=== PATIENT | male | born 1940 | race Caucasian/White ===

== ENCOUNTER → 2016-09-01 | Outpatient (CLI) | payer OTHER ==
[2016-09-01 10:22] LABS: ESTIMATED AVERAGE GLUCOSE 174 mg/dl; HA1C FLAG Normal (Normal)
[2016-09-01 10:42] LABS: ALT/SGPT 24 U/L (12-78); BLOOD UREA NITROGEN 14 mg/dl (7-18); BUN/CREATININE RATIO 16.1 (10-20); CALCIUM 9.9 mg/dl (8.5-10.1); CARBON DIOXIDE 27 mmol/L (21-32); CHLORIDE 101 mmol/L (98-107); CHOLESTEROL 139 mg/dl (0-200); CREATININE 0.88 mg/dl (0.60-1.40); GLUCOSE 182 mg/dl (70-99); POTASSIUM 4.8 mmol/L (3.5-5.1); SODIUM 138 mmol/L (136-145); URIC ACID 5.4 mg/dl (2.6-7.2)
[2016-09-01 10:45] LABS: ALB/GLOB RATIO 1.4 (0.9-2); ALKALINE PHOSPHATASE 95 U/L (45-117); AST/SGOT 32 U/L (15-37); HDL CHOLESTEROL 28 mg/dl; LDL CHOLESTEROL CALCULATED 53 mg/dl; TRIGLYCERIDES 288 mg/dl (0-150); VERY LOW DENSITY LIPOPROT CALC 58 mg/dl
== END | disposition home or self-care (01) ==
LOC: C.LAB1850 08:56
PROVIDERS: ATTEND Internal Medicine
DX: E78.5 Hyperlipidemia, unspecified (principal); E11.9 Type 2 diabetes mellitus without complications; M10.9 Gout, unspecified; I10 Essential (primary) hypertension

== ENCOUNTER → 2017-02-02 | Outpatient (CLI) | payer OTHER ==
[2017-02-02 13:30] LABS: ESTIMATED AVERAGE GLUCOSE 189 mg/dl; HA1C FLAG Normal (Normal)
[2017-02-02 13:45] LABS: ALT/SGPT 26 U/L (12-78); BLOOD UREA NITROGEN 12 mg/dl (7-18); BUN/CREATININE RATIO 14.8 (10-20); CALCIUM 9.5 mg/dl (8.5-10.1); CARBON DIOXIDE 26 mmol/L (21-32); CHLORIDE 106 mmol/L (98-107); CHOLESTEROL 103 mg/dl (0-200); CREATININE 0.83 mg/dl (0.60-1.40); GLUCOSE 185 mg/dl (70-99); POTASSIUM 4.4 mmol/L (3.5-5.1); SODIUM 137 mmol/L (136-145); TRIGLYCERIDES 263 mg/dl (0-150); URIC ACID 5.5 mg/dl (2.6-7.2); VERY LOW DENSITY LIPOPROT CALC 53 mg/dl
[2017-02-02 13:49] LABS: ALB/GLOB RATIO 1.2 (0.9-2); ALKALINE PHOSPHATASE 80 U/L (45-117); AST/SGOT 42 U/L (15-37); CHOLESTEROL/HDL RATIO 3.8; HDL CHOLESTEROL 27 mg/dl; LDL CHOLESTEROL CALCULATED 23 mg/dl
== END | disposition home or self-care (01) ==
LOC: C.LABBC 09:32
PROVIDERS: ATTEND Internal Medicine
DX: E78.5 Hyperlipidemia, unspecified (principal); E11.9 Type 2 diabetes mellitus without complications

== ENCOUNTER → 2017-05-28 | Outpatient (CLI) | payer OTHER ==
[2017-05-28 12:43] LABS: ALT/SGPT 21 U/L (12-78); BLOOD UREA NITROGEN 14 mg/dl (7-18); BUN/CREATININE RATIO 16.3 (10-20); CALCIUM 9.5 mg/dl (8.5-10.1); CARBON DIOXIDE 24 mmol/L (21-32); CHLORIDE 103 mmol/L (98-107); CREATININE 0.89 mg/dl (0.60-1.40); GLUCOSE 147 mg/dl (70-99); POTASSIUM 4.2 mmol/L (3.5-5.1); SODIUM 135 mmol/L (136-145)
[2017-05-28 12:46] LABS: ALB/GLOB RATIO 1.5 (0.9-2); ALKALINE PHOSPHATASE 66 U/L (45-117); AST/SGOT 28 U/L (15-37)
[2017-05-28 12:58] LABS: ESTIMATED AVERAGE GLUCOSE 169 mg/dl; HA1C FLAG Normal (Normal)
== END | disposition home or self-care (01) ==
LOC: C.LAB1850 09:52
PROVIDERS: ATTEND Internal Medicine
DX: E11.9 Type 2 diabetes mellitus without complications (principal); E78.5 Hyperlipidemia, unspecified; I10 Essential (primary) hypertension

== ENCOUNTER → 2017-09-26 | Outpatient (CLI) | payer OTHER ==
[2017-09-26 14:18] LABS: ALBUMIN 3.9 gm/dl (3.4-5.0); ALT/SGPT 25 U/L (12-78); BLOOD UREA NITROGEN 11 mg/dl (7-18); CALCIUM 9.4 mg/dl (8.5-10.1); CARBON DIOXIDE 28 mmol/L (21-32); CREATININE 0.97 mg/dl (0.60-1.40); GLUCOSE 184 mg/dl (70-99); POTASSIUM 4.1 mmol/L (3.5-5.1); SODIUM 137 mmol/L (136-145)
[2017-09-26 14:21] LABS: ALKALINE PHOSPHATASE 82 U/L (45-117); AST/SGOT 42 U/L (15-37); TOTAL PROTEIN 7.4 gm/dl (6.4-8.2)
[2017-09-27 06:27] LABS: HEMOGLOBIN A1C 7.4 % (4.5-5.6)
== END | disposition home or self-care (01) ==
LOC: C.LABBC 10:23
PROVIDERS: ATTEND Internal Medicine
DX: E11.9 Type 2 diabetes mellitus without complications (principal)

== ENCOUNTER → 2018-02-01 | Outpatient (CLI) | payer OTHER ==
[2018-02-01 17:02] LABS: HEMOGLOBIN A1C 7.1 % (4.5-5.6)
[2018-02-01 17:09] LABS: ALBUMIN 4.1 gm/dl (3.4-5.0); ALKALINE PHOSPHATASE 84 U/L (45-117); ALT/SGPT 25 U/L (12-78); AST/SGOT 36 U/L (15-37); BLOOD UREA NITROGEN 15 mg/dl (7-18); CALCIUM 9.2 mg/dl (8.5-10.1); CARBON DIOXIDE 23 mmol/L (21-32); CHOLESTEROL 98 mg/dl (0-200); CREATININE 0.97 mg/dl (0.60-1.40); GLUCOSE 119 mg/dl (70-99); LDL CHOLESTEROL CALCULATED 38 mg/dl; POTASSIUM 4.4 mmol/L (3.5-5.1); SODIUM 136 mmol/L (136-145); TOTAL PROTEIN 7.3 gm/dl (6.4-8.2)
== END | disposition home or self-care (01) ==
LOC: C.LABPBG 11:18
PROVIDERS: ATTEND Internal Medicine
DX: E11.9 Type 2 diabetes mellitus without complications (principal); I10 Essential (primary) hypertension; E78.5 Hyperlipidemia, unspecified; Z12.5 Encounter for screening for malignant neoplasm of prostate

== ENCOUNTER 2024-03-26 19:54 | Inpatient (IN) ==
--- NOTE | 2024-03-26 20:33 | Emergency Department Note ---
Impression & Plan Anemia, Chronic lymphocytic leukemia, NAVAS (dyspnea on exertion), Swelling ED Provider Note Provider: Jag Fierro MD DATE OF SERVICE: 03/26/2024 CHIEF COMPLAINT: Referred, swelling HISTORY OF PRESENT ILLNESS: Patient is a 83-year-old gentleman history of CLL follows with oncology here as well as diabetes presenting here today referred by his outpatient primary doctor. Over the last week or so has increased on the lower legs. Bilateral and fairly significant. Difficulty laying flat admitted for cough and dyspnea on exertion. No chest pain or abdominal pain reported. No syncope or falls. Saw his outpatient doctor and started on Lasix which she just took this evening. Had outpatient blood work and x-ray done at [facility]. Evidently results showed evidence of fluid overload and significant anemia with a white blood cell count also found to be over 200,000 was referred here for further evaluation. Also reports that he may have been in atrial fibrillation. Did have some imaging completed here last week for evaluation with oncology to start oral chemotherapy at the end of this month as he is not currently on anything. Not on blood thinners. Denies any active bleeding or black or bloody stools. Denies fever or significant congestion at this point. Has had COVID in the past. PAST MEDICAL HISTORY: As noted above MEDICATIONS: Reviewed home medications SOCIAL HISTORY: PHYSICAL EXAM: GENERAL: alert and oriented in no acute distress on stretcher Head: normocephalic and atraumatic EYES: No injection, discharge or icterus. NECK: Trachea midline. ENT: Mucous membranes pink and moist. LUNGS: Airway patent. No retractions. Breath sounds diminished in the bilateral bases HEART: Regular rate and rhythm. No chest wall tenderness ABDOMEN: Soft and non-tender, without guarding or rebound. SKIN: Acyanotic, warm, dry, without rashes EXTREMITIES: Without tenderness with 2-3+ edema the bilateral lower legs. NEUROLOGICAL: No focal deficits. No aphasia. No facial droop or slurred speech. Ambulatory. EK bpm sinus rhythm first-degree AV block with occasional PVC. No acute ST segment elevation with a QTc of 452. CONTINUOUS CARDIAC MONITORING: was ordered and showed a heart rate of 90s bpm in first-degree AV block frequent PVCs 2 view chest x-ray PA and lateral from [facility] obtained and in the EMR per my interpretation with evidence of particularly some lower lung effusion and scattered slight pulmonary edema but no pneumothorax or pneumonia appreciable. No obvious free air. Patient's laboratory studies and imaging reviewed. Differential includes Infection, dehydration, metabolic abnormality, hypo/hyperglycemia, electrolyte disturbance, anemia, hypoxia, cardiac sources, intracerebral event, toxicologic, neurologic, as well as other pathologies. IMPRESSION/MEDICAL DECISION MAKING: No bleeding or blood loss reported. Outpatient blood work with his history of CLL is concerning for possible anemia related to low production. Type and screen sent. Repeat blood work sent. Will obtain x-ray and seems likely consistent with some fluid overload probably from the level blood counts. Report of possible A-fib but does not appear to be A-fib upon arrival here. Will not start anticoagulation at this point but continue to monitor until further information of where this was noted can be found. No evidence of any significant confusion does not appear meningitic. No focal neurological deficit and doubt stroke. Did send iron ferritin panel although again seems likely related to his oncological process. Patient likely not hypoxic and I doubt this represents PE or pneumonia. Blood work here with mild hyperkalemia 5.4 but normal creatinine of 1.09. Iron level not low. BNP and troponin elevated 109 of 500 without elevated procalcitonin negative respiratory viral panel. Hemoglobin 5.1 with a white blood cell count of 282,000. Antibody screen is returning somewhat positive corneal blood bank as they were through final analysis. Reach out discussed with oncology. Patient consented for blood transfusion. 3 units packed red blood cells ordered. Discussed with oncology Dr. Hyatt who recommended l eukoreduced and irradiated blood products. Will need at least 3 units and blood bank will need to find these. Patient is hemodynamically stable. Given his age, the need for these to be infused gradually and the elevated troponin with his symptoms do believe he requires further observation until this could be completed and discussed with the hospitalist team. Patient agreeable as is the hospitalist. DIAGNOSIS: Dyspnea on exertion, leg swelling, CLL, anemia DISPOSITION: Hospitalist will evaluate Patient was agreeable with this plan. Critical Care I have personally spent 48 minutes of critical care time in the direct management of this patient. This includes bedside care, interpretation of diagnostic studies, and testing, discussion with consultants, patient, and family members, and other required patient management activities. These 48 minutes is in excess of all separately billable procedures. Past Med/Surg History Problem List (Updated 03/26/24 @ 22:25 by Jag Fierro M.D.) Swelling (Acute) NAVAS (dyspnea on exertion) (Acute) Chronic lymphocytic leukemia (Acute) Anemia (Acute) Social History Smoking Status: Never smoker Hx Alcohol Use: No Hx Substance Use: No Preferred Language: Jamaican Communication Ability: Effective Cold Rolling Supervisor Required: No Beliefs That Will Affect Care: None Current Living Situation: Spouse Feels Safe at Home: Yes Assistive Devices: Cane Allergies Allergies Allergy/AdvReac Type Severity Reaction Status Date / Time No Known Allergies Allergy Unverified 02/16/23 09:48 Home Meds Home Medications Medication Instructions Recorded Confirmed albuterol sulfate 90 mcg/actuation 2 puff inhalation Q4 PRN WHEEZING 03/26/24 03/26/24 aerosol inhaler OR COUGH allopurinol 100 mg tablet 100 mg PO QPM 03/26/24 03/26/24 aspirin 81 mg tablet,delayed 81 mg PO DAILY 03/26/24 03/26/24 release doxazosin 2 mg tablet 2 mg PO QPM 03/26/24 03/26/24 empagliflozin 25 mg tablet 25 mg PO QAM 03/26/24 03/26/24 (Jardiance) furosemide 40 mg tablet 40 mg PO DAILY 03/26/24 03/26/24 levothyroxine 50 mcg tablet 50 mcg PO DAILYBB 03/26/24 03/26/24 metoprolol succinate 50 mg 50 mg PO HS 03/26/24 03/26/24 tablet,extended release 24 hr rosuvastatin 10 mg tablet 10 mg PO QPM 03/26/24 03/26/24 sitagliptin phosphate 50 1 tab PO BID 03/26/24 03/26/24 mg-metformin 1,000 mg tablet (Janumet) Results & Data (ED) Vital Signs Vital Signs - 24 hr 03/26/24 19:58 03/26/24 20:16 03/26/24 20:26 Temperature 36.9 C Temperature Source Oral Pulse Rate 102 H 93 H Pulse Rate [Apical] 90 Respiratory Rate 20 20 Respiratory Effort / Characteristics Non-Labored Spontaneous Respiratory Depth Normal Respiratory Pattern Blood Pressure 106/56 L Blood Pressure [Right Arm] 134/74 Blood Pressure Mean 72 Blood Pressure Mean [Right Arm] 94 Blood Pressure Position [Right Arm] Semi-fowlers Pulse Oximetry 93 92 Oxygen Delivery Method Room Air Room Air Sepsis Recent Fever Within 48 Hours No Sepsis New/Unexplained Change in Mental Status No Sepsis Action Taken by Nursing No Action Required 03/26/24 20:26 03/26/24 21:25 03/26/24 22:04 Temperature 37.0 C Temperature Source Oral Pulse Rate 92 H Pulse Rate [Apical] 90 91 H Respiratory Rate 24 23 24 Respiratory Effort / Characteristics Non-Labored Spontaneous Respiratory Depth Normal Respiratory Pattern Regular Blood Pressure Blood Pressure [Right Arm] 111/72 105/60 Blood Pressure Mean Blood Pressure Mean [Right Arm] 85 75 Blood Pressure Position [Right Arm] Semi-fowlers Semi-fowlers Pulse Oximetry 92 92 92 Oxygen Delivery Method Room Air Room Air Room Air Sepsis Recent Fever Within 48 Hours Sepsis New/Unexplained Change in Mental Status Sepsis Action Taken by Nursing Laboratory Data 03/26/24 20:24 03/26/24 20:24 Lab Results 03/26/24 03/26/24 03/26/24 Range/Units 20:24 20:31 20:39 WBC 282.26 H* (4.8-10.8) K/ul RBC 1.64 L (4.70-6.10) M/uL Hgb 5.1 L* (14.0-18.0) g/dl Hct 19.0 L* (42.0-52.0) % MCV 115.9 H (80.0-100.0) fL MCH 31.1 (25.0-34.0) pg MCHC 26.8 L (32.0-36.0) g/dL Plt Count 164 (130-400) K/uL MPV 10.7 (9.4-12.4) fL Immature Gran % (Auto) 0.4 % Neut % (Auto) 2.8 % Lymph % (Auto) 90.3 % Casey % (Auto) 6.3 % Eos % (Auto) 0.1 % Baso % (Auto) 0.1 % Neut # (Auto) 7.78 H (1.40-6.50) K/uL Lymph # (Auto) 254.87 H (1.20-3.40) K/uL Casey # (Auto) 17.80 H (0.11-0.59) K/uL Eos # (Auto) 0.36 (0.00-0.50) K/uL Baso # (Auto) 0.29 H (0.00-0.20) K/uL Immature Gran # (Auto) 1.16 H (0.01-0.20) K/uL Absolute Nucleated RBC 0.05 (0.00-0.12) K/uL Smudge Cells Present Polychromasia 2+ Hypochromasia Present Macrocytosis Present PT 12.4 H (9.0-12.0) Seconds INR 1.2 H (0.9-1.1) Sodium 140 (136-145) mmol/L Potassium 5.4 H (3.5-5.1) mmol/L Chloride 106 (98-107) mmol/L Carbon Dioxide 26 (21-32) mmol/L Anion Gap 8 (3-11) BUN 28 H (6-23) mg/dl Creatinine 1.09 (0.6-1.4) mg/dl Est Cr Clr Drug Dosing 58.3 ml/min eGFR 68.18 BUN/Creatinine Ratio 25.7 H (10-20) Glucose 217 H (70-99(Fasting)) mg/dl Calcium 9.3 (8.6-10.3) mg/dl Magnesium 1.9 (1.7-2.4) mg/dl Iron 178 H (35-175) mcg/dl TIBC 329 (250-450) mcg/dl Unsaturated IBC 151 L (155-355) mcg/dl Transferrin % Sat 54 H (20-50) % Ferritin 256.3 (8-388) ng/ml Total Bilirubin 1.2 H (0.2-1.0) mg/dl AST 30 (13-39) U/L ALT 9 (7-52) U/L Alkaline Phosphatase 121 H (34-104) U/L Troponin I High Sens 109.0 H* (0-20) pg/ml B-Natriuretic Peptide 500 H (0-100) pg/ml Total Protein 6.4 (6.0-8.3) gm/dl Albumin 4.5 (3.4-5.0) gm/dl Globulin 1.9 L (2.5-4.0) gm/dl Albumin/Globulin Ratio 2.4 H (0.9-2) Procalcitonin < 0.02 (0-0.5) ng/ml TSH 11.667 H (0.300-4.500) uIu/ml Free T4 0.79 (0.61-1.60) ng/dl Urine Color Urine Appearance (Clear) Urine pH (4.5-7.5) Ur Specific Sherman (1.000-1.030) Urine Protein (Negative) Urine Glucose (UA) (Negative) Urine Ketones (Negative) Urine Blood (Negative) Urine Nitrite (Negative) Urine Bilirubin (Negative) Urine Urobilinogen (Negative) Ur Leukocyte Esterase (Negative) Adenovirus (PCR) Not Detected (NotDetected) B. pertussis DNA (PCR) Not Detected (NotDetected) B.parapertussis DNA PCR Not Detected (NotDetected) C. pneumoniae DNA (PCR) Not Detected (NotDetected) Coronavirus OC43 (PCR) Not Detected (NotDetected) Coronavirus HKU1 (PCR) Not Detected (NotDetected) Coronavirus 229E (PCR) Not Detected (NotDetected) SARS-CoV-2 (PCR) Not Detected (NotDetected) Coronavirus NL63 (PCR) Not Detected (NotDetected) Human Metapneumovir PCR Not Detected (NotDetected) Influenza Type A (PCR) Not Detected (NotDetected) Influenza Type B (PCR) Not Detected (NotDetected) M. pneumoniae (PCR) Not Detected (NotDetected) Parainfluenza 1 (PCR) Not Detected (NotDetected) Parainfluenza 2 (PCR) Not Detected (NotDetected) Parainfluenza 3 (PCR) Not Detected (NotDetected) Parainfluenza 4 (PCR) Not Detected (NotDetected) RSV (PCR) Not Detected (NotDetected) Entero/Rhino (PCR) Not Detected (NotDetected) Blood Type O Positive Antibody Screen NEGATIVE Crossmatch See Detail See Detail 03/26/24 Range/Units 21:30 WBC (4.8-10.8) K/ul RBC (4.70-6.10) M/uL Hgb (14.0-18.0) g/dl Hct (42.0-52.0) % MCV (80.0-100.0) fL MCH (25.0-34.0) pg MCHC (32.0-36.0) g/dL Plt Count (130-400) K/uL MPV (9.4-12.4) fL Immature Gran % (Auto) % Neut % (Auto) % Lymph % (Auto) % Casey % (Auto) % Eos % (Auto) % Baso % (Auto) % Neut # (Auto) (1.40-6.50) K/uL Lymph # (Auto) (1.20-3.40) K/uL Casey # (Auto) (0.11-0.59) K/uL Eos # (Auto) (0.00-0.50) K/uL Baso # (Auto) (0.00-0.20) K/uL Immature Gran # (Auto) (0.01-0.20) K/uL Absolute Nucleated RBC (0.00-0.12) K/uL Smudge Cells Polychromasia Hypochromasia Macrocytosis PT (9.0-12.0) Seconds INR (0.9-1.1) Sodium (136-145) mmol/L Potassium (3.5-5.1) mmol/L Chloride (98-107) mmol/L Carbon Dioxide (21-32) mmol/L Anion Gap (3-11) BUN (6-23) mg/dl Creatinine (0.6-1.4) mg/dl Est Cr Clr Drug Dosing ml/min eGFR BUN/Creatinine Ratio (10-20) Glucose (70-99(Fasting)) mg/dl Calcium (8.6-10.3) mg/dl Magnesium (1.7-2.4) mg/dl Iron (35-175) mcg/dl TIBC (250-450) mcg/dl Unsaturated IBC (155-355) mcg/dl Transferrin % Sat (20-50) % Ferritin (8-388) ng/ml Total Bilirubin (0.2-1.0) mg/dl AST (13-39) U/L ALT (7-52) U/L Alkaline Phosphatase (34-104) U/L Troponin I High Sens (0-20) pg/ml B-Natriuretic Peptide (0-100) pg/ml Total Protein (6.0-8.3) gm/dl Albumin (3.4-5.0) gm/dl Globulin (2.5-4.0) gm/dl Albumin/Globulin Ratio (0.9-2) Procalcitonin (0-0.5) ng/ml TSH (0.300-4.500) uIu/ml Free T4 (0.61-1.60) ng/dl Urine Color Yellow Urine Appearance Clear (Clear) Urine pH 5.0 (4.5-7.5) Ur Specific Sherman 1.013 (1.000-1.030) Urine Protein Negative (Negative) Urine Glucose (UA) 3+ H (Negative) Urine Ketones Negative (Negative) Urine Blood Negative (Negative) Urine Nitrite Negative (Negative) Urine Bilirubin Negative (Negative) Urine Urobilinogen Negative (Negative) Ur Leukocyte Esterase Negative (Negative) Adenovirus (PCR) (NotDetected) B. pertussis DNA (PCR) (NotDetected) B.parapertussis DNA PCR (NotDetected) C. pneumoniae DNA (PCR) (NotDetected) Coronavirus OC43 (PCR) (NotDetected) Coronavirus HKU1 (PCR) (NotDetected) Coronavirus 229E (PCR) (NotDetected) SARS-CoV-2 (PCR) (NotDetected) Coronavirus NL63 (PCR) (NotDetected) Human Metapneumovir PCR (NotDetected) Influenza Type A (PCR) (NotDetected) Influenza Type B (PCR) (NotDetected) M. pneumoniae (PCR) (NotDetected) Parainfluenza 1 (PCR) (NotDetected) Parainfluenza 2 (PCR) (NotDetected) Parainfluenza 3 (PCR) (NotDetected) Parainfluenza 4 (PCR) (NotDetected) RSV (PCR) (NotDetected) Entero/Rhino (PCR) (NotDetected) Blood Type Antibody Screen Crossmatch Discharge Plan Visit Data Chief Complaint: Abnormal Labs/Diagnostic Testing Stated Complaint: ABN EKG, IN A-FIB, CLL, DOUBLE WHITE BLOOD COUNT ED Provider: Jag Fierro Discharge Problem: Anemia, Chronic lymphocytic leukemia, NAVAS (dyspnea on exertion), Swelling Patient Disposition: Being Evaluated by Hospitalist Forms Stand Alone Forms: [facility] Prescriptions Prescriptions: No Action furosemide 40 mg tablet 40 mg PO DAILY albuterol sulfate 90 mcg/actuation HFA aerosol inhaler 2 puff INHALATION Q4 PRN (Reason: WHEEZING OR COUGH) aspirin [Aspirin Low-Strength] 81 mg Tablet,Delayed Release (Dr/Ec) 81 mg PO DAILY allopurinol 100 mg tablet 100 mg PO QPM levothyroxine 50 mcg tablet 50 mcg PO DAILYBB metoprolol succinate 50 mg tablet extended release 24 hr 50 mg PO HS Janumet 50-1,000 mg tablet 1 tab PO BID doxazosin 2 mg tablet 2 mg PO QPM rosuvastatin 10 mg tablet 10 mg PO QPM Jardiance 25 mg tablet 25 mg PO QAM Referrals Referrals: Lang Colon [Primary Care Provider] -
[2024-03-26 20:59] LABS: Albumin Globulin Ratio 2.4 (0.9-2); Albumin Level 4.5 gm/dl (3.4-5.0); BUN Creatinine Ratio 25.7 (10-20); Bilirubin,Total 1.2 mg/dl (0.2-1.0); Calcium 9.3 mg/dl (8.6-10.3); Creatinine Clr Calc Pharmacy 58.3 ml/min; Globulin 1.9 gm/dl (2.5-4.0); Magnesium 1.9 mg/dl (1.7-2.4); Potassium 5.4 mmol/L (3.5-5.1); Total Protein 6.4 gm/dl (6.0-8.3)
[2024-03-26 21:10] LABS: INR 1.2 (0.9-1.1); Prothrombin Time 12.4 Seconds (9.0-12.0)
[2024-03-26 21:15] LABS: Thyroid Stimulating Hormone 11.667 uIu/ml (0.300-4.500)
[2024-03-26 21:20] LABS: Ferritin 256.3 ng/ml (8-388)
[2024-03-26 21:41] LABS: Adenovirus PCR Not Detected (NotDetected); Bordetella parapertussis PCR Not Detected (NotDetected); Bordetella pertussis PCR Not Detected (NotDetected); Chlamydia pneumoniae PCR Not Detected (NotDetected); Coronavirus 229E PCR Not Detected (NotDetected); Coronavirus CoV-2 (COVID19)PCR Not Detected (NotDetected); Coronavirus HKU1 PCR Not Detected (NotDetected); Coronavirus NL63 PCR Not Detected (NotDetected); Coronavirus OC43PCR Not Detected (NotDetected); Human Metapneumovirus PCR Not Detected (NotDetected); Influenza A PCR Not Detected (NotDetected); Influenza B PCR Not Detected (NotDetected); Mycoplasma pneumoniae PCR Not Detected (NotDetected); Parainfluenza Virus 1 PCR Not Detected (NotDetected); Parainfluenza Virus 2 PCR Not Detected (NotDetected); Parainfluenza Virus 3 PCR Not Detected (NotDetected); Parainfluenza Virus 4 PCR Not Detected (NotDetected); Respiratory Syncytial VirusPCR Not Detected (NotDetected); Rhinovirus/Enterovirus PCR Not Detected (NotDetected)
[2024-03-26 21:47] LABS: Hemoglobin 5.1 g/dl (14.0-18.0); Mean Corpuscular Hemoglobin 31.1 pg (25.0-34.0); Mean Corpuscular Hgb Conc 26.8 g/dL (32.0-36.0); Mean Corpuscular Volume 115.9 fL (80.0-100.0); Mean Platelet Volume 10.7 fL (9.4-12.4); Nucleated RBC # (auto) 0.05 K/uL (0.00-0.12); Platelet Count 164 K/uL (130-400); Red Blood Count 1.64 M/uL (4.70-6.10); White Blood Count 282.26 K/ul (4.8-10.8)
[2024-03-26 21:52] LABS: T4 Free Thyroxine 0.79 ng/dl (0.61-1.60)
[2024-03-26] MEDS ORDERED: SODIUM CHLORIDE 0.9% 250 ML IV PRN (22:13)
[2024-03-26 22:23] LABS: Appearance Urine Clear (Clear); Bilirubin Urine Negative (Negative); Blood Urine Negative (Negative); Color Urine Yellow; Glucose Urine UA 3+ (Negative); Ketones Urine Negative (Negative); Leukocyte Esterase Urine Negative (Negative); Nitrite Urine Negative (Negative); Protein Urine Negative (Negative); Specific Gravity Urine 1.013 (1.000-1.030); Urobilinogen Urine Negative (Negative)
[2024-03-26 22:54] LABS: Basophils # (auto) 0.29 K/uL (0.00-0.20); Basophils % (auto) 0.1 %; Eosinophils # (auto) 0.36 K/uL (0.00-0.50); Eosinophils % (auto) 0.1 %; Hypochromasia Present; Immature Granulocytes # (auto) 1.16 K/uL (0.01-0.20); Immature Granulocytes % (auto) 0.4 %; Lymphocytes # (auto) 254.87 K/uL (1.20-3.40); Lymphocytes % (auto) 90.3 %; Macrocytosis Present; Monocytes % (auto) 6.3 %; Neutrophils # (auto) 7.78 K/uL (1.40-6.50); Neutrophils % (auto) 2.8 %; Polychromasia 2+; Smudge Cells Present
--- NOTE | 2024-03-26 23:56 | History & Physical Report ---
Date of Service March 26, 2024 Assessment & Plan (1) Anemia: Plan: 83-year-old male with past medical significant for CLL, gout, hypertension, hypothyroidism, diabetes, hyperlipidemia presents with shortness of breath and worsening lower extremity edema and outpatient labs showed increasing WBC and anemia. Patient states he was diagnosed with CLL 2 years ago and is following with hematology/oncology and recently it was decided to start on chemo for which he has appointment with heme-onc at end of this month. Last couple weeks he is having lower extremity edema which is progressively getting worse and and also having shortness of breath which prompted him to go to the PCP. PCP thought there could be some A-fib and advised to go to [facility] for labs. After labs because of the doubling up of the WBC and anemia he was sent here for admission. Patient is currently resting comfortably and answering questions appropriately and speaking in full sentences. Family is in the room. Denies any headache. Vision is okay. No runny nose or sore throat. No cough. Appetite is okay. No difficulty swallowing. Denies any chest pain. No nausea. No abdominal pain. Normal bowel and bladder movements. Denies any blood in the stools. No hematuria. Hemodynamics are okay. Anemia Hemoglobin 5.1 Hemoglobin 10.5 in December 2023 Denies any bleeding Will follow stool for Hemoccult ER talked with oncology and recommended irradiated PRBC transfusion which was ordered by ER Will follow labs Hematology consult in a.m. CLL Increasing WBC WBC 282 There is a plan to start chemo as per patient Heme/onco consult in a.m. Hyperkalemia Potassium 5.4 Getting IV Lasix Follow repeat labs in a.m. Nephro consult Lower extremity edema Shortness of breath Will follow chest x-ray Will get echo for any CHF Will place on IV Lasix 40 mg daily Will follow lower extremity Doppler Possible anemia contributing Will consult cardiology in a.m. for further recommendations Diabetes Hold p.o. medications Sliding scale Will follow HbA1c Will follow blood sugars Hypothyroidism On Synthyroid TSH is 11 but free T4 okay Follow-up with PCP.. Hypertension On metoprolol succinate History of gout On allopurinol Hyperlipidemia On statin DVT prophylaxis Lovenox Disposition Telemetry Full code. History of Present Illness Chief Complaint: Abnormal labs and lower extremity swelling and shortness of breath Primary Care Provider: Lang Colon 83-year-old male with past medical significant for CLL, gout, hypertension, hypothyroidism, diabetes, hyperlipidemia presents with shortness of breath and worsening lower extremity edema and outpatient labs showed increasing WBC and anemia. Patient states he was diagnosed with CLL 2 years ago and is following with hematology/oncology and recently it was decided to start on chemo for which he has appointment with heme-onc at end of this month. Last couple weeks he is having lower extremity edema which is progressively getting worse and and also having shortness of breath which prompted him to go to the PCP. PCP thought there could be some A-fib and advised to go to [facility] for labs. After labs because of the doubling up of the WBC and anemia he was sent here for admission. Patient is currently resting comfortably and answering questions appropriately and speaking in full sentences. Family is in the room. Denies any headache. Vision is okay. No runny nose or sore throat. No cough. Appetite is okay. No difficulty swallowing. Denies any chest pain. No nausea. No abdominal pain. Normal bowel and bladder movements. Denies any blood in the stools. No hematuria. Hemodynamics are okay. Past medical history. As mentioned above Past surgical history. Tonsillectomy Social history. No smoking. Has some passive smoking. No alcohol. Family history. Father had heart disease. Mother had colon cancer. Allergies Allergy/AdvReac Type Severity Reaction Status Date / Time No Known Allergies Allergy Unverified 02/16/23 09:48 Home Medications Medication Instructions Recorded Confirmed Type albuterol sulfate 90 mcg/actuation 2 puff inhalation Q4 PRN WHEEZING 03/26/24 03/26/24 History aerosol inhaler OR COUGH allopurinol 100 mg tablet 100 mg PO QPM 03/26/24 03/26/24 History aspirin 81 mg tablet,delayed 81 mg PO DAILY 03/26/24 03/26/24 History release doxazosin 2 mg tablet 2 mg PO QPM 03/26/24 03/26/24 History empagliflozin 25 mg tablet 25 mg PO QAM 03/26/24 03/26/24 History (Jardiance) furosemide 40 mg tablet 40 mg PO DAILY 03/26/24 03/26/24 History levothyroxine 50 mcg tablet 50 mcg PO DAILYBB 03/26/24 03/26/24 History metoprolol succinate 50 mg 50 mg PO HS 03/26/24 03/26/24 History tablet,extended release 24 hr rosuvastatin 10 mg tablet 10 mg PO QPM 03/26/24 03/26/24 History sitagliptin phosphate 50 1 tab PO BID 03/26/24 03/26/24 History mg-metformin 1,000 mg tablet (Janumet) Past Med/Surg History Problem List (Updated 03/26/24 @ 22:25 by Jag Fierro M.D.) Swelling (Acute) NAVAS (dyspnea on exertion) (Acute) Chronic lymphocytic leukemia (Acute) Anemia (Acute) Social History Smoking Status: Never smoker Tobacco Type: Declines Second Hand Exposure: No; Do You Dip or Chew Tobacco: No; Tobacco Cessation Education Requested by Patient: No Hx Alcohol Use: No Hx Substance Use: No Preferred Language: Khmer Communication Ability: Effective Box Closing Machine Operator Required: No Beliefs That Will Affect Care: None Current Living Situation: Spouse Current Living Situation Comment: in a house with spouse Other Information That Helps Us Care for You: No Feels Safe at Home: Yes Safety Concerns: Feels Safe At This Time Assistive Devices: Cane, Glasses, Hospital Bed and Oxygen - Continuous Review of Systems Review of Systems: All systems reviewed & are unremarkable except as noted in HPI & below Physical Exam Physical Exam: General- Not in distress. Head- atraumatic Eyes- PERRL.EOMI ENT- oropharynx clear Neck- supple, no JVD.No neck masses Lungs- clear to auscultation no wheezing or crackles. Heart- regular rhythm; no murmur, no gallop. Abdomen- normal bowel sounds, soft, nontender, no distension. Extremities- no pretibial edema, no erythema seen Neuro- alert, oriented PERRL, EOMI; no facial palsy; no dysarthria; moves extremities. Results & Data Results & Data Vital Signs (Past 12 Hours) Vital Signs Temp Pulse Pulse Resp BP BP Pulse Ox 03/26/24 22:04 37.0 C 91 H 24 105/60 92 03/26/24 21:25 90 23 111/72 92 03/26/24 20:26 92 H 24 92 03/26/24 20:26 90 20 134/74 92 03/26/24 20:16 93 H 03/26/24 19:58 36.9 C 102 H 20 106/56 L 93 O2 Del Method 03/26/24 22:04 Room Air 03/26/24 21:25 Room Air 03/26/24 20:26 Room Air 03/26/24 20:26 Room Air 03/26/24 20:16 03/26/24 19:58 Room Air Diagnostic Findings Laboratory Results WBC 282.26 K/ul (4.8-10.8) H* 03/26/24 20:24 RBC 1.64 M/uL (4.70-6.10) L 03/26/24 20:24 Hgb 5.1 g/dl (14.0-18.0) L* 03/26/24 20:24 Hct 19.0 % (42.0-52.0) L* 03/26/24 20:24 MCV 115.9 fL (80.0-100.0) H 03/26/24 20:24 MCH 31.1 pg (25.0-34.0) 03/26/24 20:24 MCHC 26.8 g/dL (32.0-36.0) L 03/26/24 20:24 Plt Count 164 K/uL (130-400) 03/26/24 20:24 MPV 10.7 fL (9.4-12.4) 03/26/24 20:24 Immature Gran % (Auto) 0.4 % 03/26/24 20: Neut % (Auto) 2.8 % 03/26/24 20: Lymph % (Auto) 90.3 % 03/26/24 20:24 [place] % (Auto) 6.3 % 03/26/24 20:24 Eos % (Auto) 0.1 % 03/26/24 20:24 Baso % (Auto) 0.1 % 03/26/24 20:24 Neut # (Auto) 7.78 K/uL (1.40-6.50) H 03/26/24 20:24 Lymph # (Auto) 254.87 K/uL (1.20-3.40) H 03/26/24 20:24 [place] # (Auto) 17.80 K/uL (0.11-0.59) H 03/26/24 20:24 Eos # (Auto) 0.36 K/uL (0.00-0.50) 03/26/24 20:24 Baso # (Auto) 0.29 K/uL (0.00-0.20) H 03/26/24 20:24 Immature Gran # (Auto) 1.16 K/uL (0.01-0.20) H 03/26/24 20:24 Absolute Nucleated RBC 0.05 K/uL (0.00-0.12) 03/26/24 20:24 Smudge Cells Present 03/26/24 20:24 Polychromasia 2+ 03/26/24 20:24 Hypochromasia Present 03/26/24 20:24 Macrocytosis Present 03/26/24 20:24 PT 12.4 Seconds (9.0-12.0) H 03/26/24 20:24 INR 1.2 (0.9-1.1) H 03/26/24 20:24 Sodium 140 mmol/L (136-145) 03/26/24 20:24 Potassium 5.4 mmol/L (3.5-5.1) H 03/26/24 20:24 Chloride 106 mmol/L (98-107) 03/26/24 20:24 Carbon Dioxide 26 mmol/L (21-32) 03/26/24 20:24 Anion Gap 8 (3-11) 03/26/24 20:24 BUN 28 mg/dl (6-23) H 03/26/24 20:24 Creatinine 1.09 mg/dl (0.6-1.4) 03/26/24 20:24 Est Cr Clr Drug Dosing 58.3 ml/min 03/26/24 20:24 eGFR 68.18 03/26/24 20:24 BUN/Creatinine Ratio 25.7 (10-20) H 03/26/24 20:24 Glucose 217 mg/dl (70-99(Fasting)) H 03/26/24 20:24 Calcium 9.3 mg/dl (8.6-10.3) 03/26/24 20:24 Magnesium 1.9 mg/dl (1.7-2.4) 03/26/24 20:24 Iron 178 mcg/dl (35-175) H 03/26/24 20:24 TIBC 329 mcg/dl (250-450) 03/26/24 20:24 Unsaturated IBC 151 mcg/dl (155-355) L 03/26/24 20:24 Transferrin % Sat 54 % (20-50) H 03/26/24 20:24 Ferritin 256.3 ng/ml (8-388) 03/26/24 20:24 Total Bilirubin 1.2 mg/dl (0.2-1.0) H 03/26/24 20:24 AST 30 U/L (13-39) 03/26/24 20:24 ALT 9 U/L (7-52) 03/26/24 20:24 Alkaline Phosphatase 121 U/L (34-104) H 03/26/24 20:24 Troponin I High Sens 16.8 pg/ml (0-20) D 03/26/24 22:31 B-Natriuretic Peptide 500 pg/ml (0-100) H 03/26/24 20:24 Total Protein 6.4 gm/dl (6.0-8.3) 03/26/24 20: Albumin 4.5 gm/dl (3.4-5.0) 03/26/24 20: Globulin 1.9 gm/dl (2.5-4.0) L 03/26/24 20: Albumin/Globulin Ratio 2.4 (0.9-2) H 03/26/24 20:24 Procalcitonin < 0.02 ng/ml (0-0.5) 03/26/24 20: TSH 11.667 uIu/ml (0.300-4.500) H 03/26/24 20: Free T4 0.79 ng/dl (0.61-1.60) 03/26/24 20: Urine Color Yellow 03/26/24: Urine Appearance Clear (Clear) 03/26/24: Urine pH 5.0 (4.5-7.5) 03/26/24 21:30 Ur Specific Mccool 1.013 (1.000-1.030) 03/26/24: Urine Protein Negative (Negative) 03/26/24: Urine Glucose (UA) 3+ (Negative) H 03/26/24: Urine Ketones Negative (Negative) 03/26/24 21: Urine Blood Negative (Negative) 03/26/24 21: Urine Nitrite Negative (Negative) 03/26/24: Urine Bilirubin Negative (Negative) 03/26/24: Urine Urobilinogen Negative (Negative) 10/09/24 21:30 Ur Leukocyte Esterase Negative (Negative) 03/26/24 21:30 Adenovirus (PCR) Not Detected (NotDetected) 03/26/24 20:31 B. pertussis DNA (PCR) Not Detected (NotDetected) 03/26/24 20:31 B.parapertussis DNA PCR Not Detected (NotDetected) 03/26/24 20:31 C. pneumoniae DNA (PCR) Not Detected (NotDetected) 03/26/24 20:31 Coronavirus OC43 (PCR) Not Detected (NotDetected) 03/26/24 20:31 Coronavirus HKU1 (PCR) Not Detected (NotDetected) 03/26/24 20:31 Coronavirus 229E (PCR) Not Detected (NotDetected) 03/26/24 20:31 SARS-CoV-2 (PCR) Not Detected (NotDetected) 03/26/24 20:31 Coronavirus NL63 (PCR) Not Detected (NotDetected) 03/26/24 20:31 Human Metapneumovir PCR Not Detected (NotDetected) 03/26/24 20:31 Influenza Type A (PCR) Not Detected (NotDetected) 03/26/24 20:31 Influenza Type B (PCR) Not Detected (NotDetected) 03/26/24 20:31 M. pneumoniae (PCR) Not Detected (NotDetected) 03/26/24 20:31 Parainfluenza 1 (PCR) Not Detected (NotDetected) 03/26/24 20:31 Parainfluenza 2 (PCR) Not Detected (NotDetected) 03/26/24 20:31 Parainfluenza 3 (PCR) Not Detected (NotDetected) 03/26/24 20:31 Parainfluenza 4 (PCR) Not Detected (NotDetected) 03/26/24 20:31 RSV (PCR) Not Detected (NotDetected) 03/26/24 20:31 Entero/Rhino (PCR) Not Detected (NotDetected) 03/26/24 20:31 Blood Type O Positive 03/26/24 20:24 Blood Type Recheck O Positive 03/26/24 20:39 Antibody Screen NEGATIVE 03/26/24 20:24 Crossmatch See Detail 03/26/24 20:39 ECG Additional Comments: ECG. Sinus rhythm with first-degree AV block with frequent PVCs rate of 91. Nonspecific ST and T wave abnormality. QTc 452. Code Status & VTE Plan VTE Prophylaxis Plan VTE Prophylaxis will be ordered: Yes
[2024-03-27] MEDS ORDERED: CARBOHYDRATES FOR HYPOGLYCEMIA PO PRN (00:25)
[2024-03-27] MEDS ORDERED: GLUCOSE 10 TAB/TUBE PO PRN (00:25)
[2024-03-27] MEDS ORDERED: GLUCAGON FOR INJ 1 MG VIAL SQ PRN (00:25)
[2024-03-27] MEDS ORDERED: ALBUTEROL HFA 8 GM INHALER INH PRN (00:25)
[2024-03-27] MEDS ORDERED: ACETAMINOPHEN 325 MG TAB PO PRN (00:25)
[2024-03-27] MEDS ORDERED: DEXTROSE 50% 50 ML SYRINGE IV PRN (00:25)
[2024-03-27] MEDS ORDERED: NITROGLYCERIN SL 0.4 MG/TAB TAB SL PRN (00:25)
[2024-03-27] MEDS ORDERED: GLUCOSE 40% GEL 15 GM TUBE PO PRN (00:25)
[2024-03-27] MEDS: FUROSEMIDE INJ 20 MG/2 ML VIAL IV ONE (01:06)
[2024-03-27] MEDS ORDERED: Nursing to Pharmacy Communication SCH ×2 (01:30→19:15)
[2024-03-27] MEDS: INSULIN ASPART PER UNIT CHARGE SC SCH ×2 (06:07→21:50)
[2024-03-27] MEDS: LEVOTHYROXINE SODIUM 50 MCG TABLET PO SCH (06:09)
[2024-03-27 07:20] LABS: White Blood Count 256.87 K/ul (4.8-10.8)
--- NOTE | 2024-03-27 07:21 | XRay Report ---
SINGLE VIEW CHEST CLINICAL HISTORY: Dyspnea FINDINGS: An AP, portable, upright chest radiograph is compared to study dated 03/09/2011. Correlation is made with chest CT dated 03/21/2024. The examination is degraded by portable technique, apical tye dotic positioning, and patient rotation. The heart is enlarged noting atherosclerotic calcification of the thoracic aorta. There is evidence of congestive failure and pulmonary edema. There is chronic elevation of right hemidiaphragm. There are small pleural effusions with dependent consolidation. No pneumothorax is seen. The skeletal structures are osteopenic. The bony thorax is grossly intact. Dege nerative change is noted in the shoulders. IMPRESSION: 1. Cardiomegaly with evidence of congestive failure and pulmonary edema. Radiographic follow-up to re solution is recommended. 2. Small pleural effusions with dependent consolidation. ACT 112: Negative or not required by law. Electronically signed by: Wallace Bush M.D. 03/27/2024 7:20 AM
[2024-03-27 07:22] LABS: BUN Creatinine Ratio 26.7 (10-20); Creatinine Clr Calc Pharmacy 67.8 ml/min; Potassium 5.7 mmol/L (3.5-5.1)
[2024-03-27 07:23] LABS: Hematocrit (blood only) 21.7 % (42.0-52.0); Hemoglobin 5.9 g/dl (14.0-18.0); Mean Corpuscular Hemoglobin 29.4 pg (25.0-34.0); Mean Corpuscular Hgb Conc 27.2 g/dL (32.0-36.0); Mean Platelet Volume 10.4 fL (9.4-12.4); Nucleated RBC # (auto) 0.06 K/uL (0.00-0.12); Platelet Count 144 K/uL (130-400); RDW Coefficient of Variation 25.5 % (11.5-14.5); RDW Standard Deviation 65.4 fL (36.4-46.3); Red Blood Count 2.01 M/uL (4.70-6.10)
[2024-03-27 07:28] LABS: Troponin I High Sensitivity 22.8 pg/ml (0-20)
[2024-03-27] MEDS ORDERED: INSULIN ASPART PER UNIT CHARGE SC SCH (07:30)
[2024-03-27 08:09] LABS: Estimated Average Glucose 171 mg/dl; Hemoglobin A1C 7.6 % (4.5-5.6)
--- NOTE | 2024-03-27 08:09 | Oncology Consultation ---
Date of Consultation March 27, 2024 Assessment & Plan (1) Chronic lymphocytic leukemia: (2) Heart failure: (3) Acute heart failure with preserved ejection fraction (HFpEF): (4) Anemia: Plan -Patient presented with severe anemia likely due to CLL. Anemia likely multifactorial due to severe splenomegaly, bone marrow involvement by CLL and likely hemolytic anemia. 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 -Recommend starting folic acid 1 mg p.o. daily. Also recommend starting methylprednisolone 80 mg IV daily -Ultimately, patient needs to start treatment for CLL LOUIS. Order for acalabrutinib 100 mg p.o. twice daily placed and sent to specialty pharmacy. Will work on getting insurance authorization [place]. -Recommend transfusing for hemoglobin less than 7. -If shortness of breath persists, recommend obtaining CTA chest to rule out PE. Thank you for this consult. Hematology continue following patient while he is in the hospital. Please feel free to call if you have any further questions. History of Present Illness Reason for Consultation: CLL, anemia Attending Physician: Mansoor Turcios MD History of Present Illness 83-year-old gentleman with longstanding history of CLL not on treatment who presented to the ER at [facility] with severe anemia. Hemoglobin was 5.1 with hematocrit of 19. Also had significant leukocytosis with white count of 282.2 and absolute lymphocyte count of 254. Chest x-ray revealed cardiomegaly with evidence of congestive failure and pulmonary edema as well as small pleural effusions with dependent consolidation. Of note, he underwent restaging CT CAP on 03/21/2024 for CLL in anticipation of potentially starting treatment with BTK inhibitor later this month. CT scan On 03/21/2024 showed evidence of disease progression with bulky abdominal pelvic lymphadenopathy, marked splenomegaly, cardiomegaly with emphysema and small pleural effusions.Patient also had hyperkalemia with potassium level of 5.7 and slightly elevated uric acid level of 7.7. Was evaluated by nephrology for hyperkalemia and cardiology for heart failure. Currently on Lasix. He received 3 units of PRBC transfusion with improvement in hemoglobin to 7.2. He states that he is doing better. Shortness of breath and fatigue has improved. Still has bilateral lower extremity edema. Allergies Allergy/AdvReac Type Severity Reaction Status Date / Time No Known Allergies Allergy Unverified 02/16/23 09:48 Home Medications Medication Instructions Recorded Confirmed Type albuterol sulfate 90 mcg/actuation 2 puff inhalation Q4 PRN WHEEZING 03/26/24 03/26/24 History aerosol inhaler OR COUGH allopurinol 100 mg tablet 100 mg PO QPM 03/26/24 03/26/24 History aspirin 81 mg tablet,delayed 81 mg PO DAILY 03/26/24 03/26/24 History release doxazosin 2 mg tablet 2 mg PO QPM 03/26/24 03/26/24 History empagliflozin 25 mg tablet 25 mg PO QAM 03/26/24 03/26/24 History (Jardiance) furosemide 40 mg tablet 40 mg PO DAILY 03/26/24 03/26/24 History levothyroxine 50 mcg tablet 50 mcg PO DAILYBB 03/26/24 03/26/24 History metoprolol succinate 50 mg 50 mg PO HS 03/26/24 03/26/24 History tablet,extended release 24 hr rosuvastatin 10 mg tablet 10 mg PO QPM 03/26/24 03/26/24 History sitagliptin phosphate 50 1 tab PO BID 03/26/24 03/26/24 History mg-metformin 1,000 mg tablet (Elin) Patient History Medical History Diabetes mellitus, type 2 Social History Smoking Status: Never smoker Tobacco Type: Declines Second Hand Exposure: No; Do You Dip or Chew Tobacco: No; Tobacco Cessation Education Requested by Patient: No Hx Alcohol Use: No Hx Substance Use: No Preferred Language: Faroese Communication Ability: Effective Glaze Sprayer Required: No Beliefs That Will Affect Care: None Current Living Situation: Spouse Current Living Situation Comment: in a house with spouse Other Information That Helps Us Care for You: No Feels Safe at Home: Yes Safety Concerns: Feels Safe At This Time Assistive Devices: Cane Results & Data Vital Signs (Past 12 Hours) Vital Signs Temp Pulse Pulse Resp BP BP Pulse Ox 03/27/24 07:54 36.9 C 83 16 130/68 95 03/27/24 06:10 36.7 C 85 16 127/63 95 03/27/24 06:10 36.7 C 85 16 127/63 95 03/27/24 05:58 36.4 C L 82 16 115/61 94 03/27/24 04:58 36.8 C 82 16 122/66 96 03/27/24 03:28 36.7 C 92 H 20 102/54 L 95 03/27/24 03:27 36.8 C 83 18 106/47 L 95 03/27/24 03:11 36.8 C 94 H 18 109/55 L 95 03/27/24 02:45 36.9 C 82 18 113/62 95 03/27/24 01:45 36.7 C 90 19 119/56 L 95 03/27/24 01:15 03/27/24 00:45 03/27/24 00:45 36.3 C L 100 H 20 123/64 95 03/27/24 00:36 90 03/27/24 00:30 03/27/24 00:25 03/27/24 00:15 36.7 C 93 H 22 123/58 L 90 03/27/24 00:15 36.7 C 93 H 22 123/58 L 90 03/27/24 00:00 37 C 90 26 H 115/52 L 91 03/26/24 23:43 36.9 C 93 H 22 116/57 L 90 03/26/24 22:04 37.0 C 91 H 24 105/60 92 03/26/24 21:25 90 23 111/72 92 03/26/24 20:26 92 H 24 92 03/26/24 20:26 90 20 134/74 92 03/26/24 20:16 93 H Pulse Ox O2 Del Method O2 Del Method O2 Flow Rate 03/27/24 07:54 2 03/27/24 06:10 2 03/27/24 06:10 2 03/27/24 05:58 2 03/27/24 04:58 2 03/27/24 03:28 2 03/27/24 03:27 2 03/27/24 03:11 2 03/27/24 02:45 2 03/27/24 01:45 2 03/27/24 01:15 Room Air 03/27/24 00:45 Nasal Cannula 03/27/24 00:45 2 03/27/24 00:36 03/27/24 00:30 Nasal Cannula 2 03/27/24 00:25 90 Room Air 03/27/24 00:15 Room Air 03/27/24 00:15 03/27/24 00:00 03/26/24 23:43 03/26/24 22:04 Room Air 03/26/24 21:25 Room Air 03/26/24 20:26 Room Air 03/26/24 20:26 Room Air 03/26/24 20:16
--- NOTE | 2024-03-27 08:27 | Cardiology Consultation ---
Date of Consultation March 27, 2024 Assessment & Plan (1) Acute heart failure with preserved ejection fraction (HFpEF): (2) Hyperkalemia: (3) Anemia: (4) Chronic lymphocytic leukemia: Plan Assessment: 83 year old male with CLL presents to the ER after abnormal labs and 2 week progressively working shortness of breath, lower extremity edema and palpitations. Plan: Acute Heart failure with preserved ejection fraction: -PCP questioned possible A-fib although no EKG was obtained outpatient and both EKGs and Telemetry here have not proven otherwise. Not out of the question given patient's cancer process and profound anemia. we will continue to monitor closely on telemetry. When patient is stable for discharge, may consider protracted cardiac monitoring with a 14 day zio if we are highly suspicious. -Continue with Furosemide 40mg IV daily. May need additional dosing if patient will be receiving more than one unit of PRBCs -Close monitoring of renal function and serum electrolytes. goal serum K> 4.0 and serum mag > 2.0 -Strict I&O and daily weights with a standing scale. -Continue Toprol xl 50mg HS for rate control and suppression of PVC's -BP controlled. Continue Doxazosin as per home regimen. -Continue ASA therapy at this time. -Thyroid function as per management per primary team. Hyperkalemia: -Already addressed by Primary team as patient has received 2 doses of Lokelma -patient also to continue IV diuretic and his insulin therapy Anemia CLL -Chronic anemia. Admission HgB 5.1, currently receiving 1 unit of PRBCs -Denies any ezekiel bleeding -Close management per primary team and Heme/Onc Case has been discussed with Dr. Márquez. Further recommendations regarding plan of care as per his assessment. I spent a total of 40 minutes on the date of service in preparation, delivery, documentation of the care provided to the patient excluding any time spent in the performance of separately billed services. GRISELDA [facility] Supervising Physician Co-Signing Physician Notes Attending attestation: Case reviewed with the advanced practitioner. I have personally performed a history and physical examination on the patient. I have reviewed the advanced practitioner's documentation on the date of service referenced in note, and I agree with, and take responsibility for the plan of care. Subjective: Patient notes recent progressive shortness of breath, lower extremity edema. Exam: Cardiovascular: Mildly decreased breath sounds at the bases, regular rhythm, 1/6 systolic murmur, 1-2+ bilateral lower extremity edema Data: Summary of transthoracic echocardiogram performed today 03/27/2024 and interpret independently: Thestudywastechnicallyadequate. Thereisborderlineconcentricleftventricularhypertrophy. Noregionalwallmotionabnormalitiesnoted. Leftventricularsystolicfun ctionisnormal. LeftVentricularEjectionFraction=55-60%. Theleftatriumismildlydilated. Aorticvalvesclerosismild,withoutsignificantaorticvalvularstenosis. Thereismildmitralregurgitation. Diastolicdysfunction,GradeII(pseudonormalizationpattern). Mildpulmonaryhypertensionispresent.Thepulmonarysystolicpressureisestim [id number]?50mmHg. Therearenopriorstudiesavailableforcomparison. Impression/ Plan: Anemia CLL Multifactorial fluid retention including acute heart failure with preserved ejection fraction contributing Hyperkalemia * Patient receiving transfusion of packed red blood cells at the time of my assessment. He was lying supine, in no acute distress. * Continue furosemide 40 mg IV daily. * Case reviewed with Dr. Mathew. Difficult to ascertain with potassium level actually is due to possible lab error is related to his CLL with severe leukocytosis. Appropriate adjustments for sample collection in progress. Nephrology input appreciated. I spent a total of 25 minutes coordinating, documenting, and providing care for this patient excluding time spent in the performance of separately billed services or time spent by another provider. Oc Márquez DO History of Present Illness Reason for Consultation: CHF Requesting Physician: Artemio Bach Attending Physician: Mansoor Turcios MD History of Present Illness HPI: Patient is a 83 year old male with PMHx significant for CLL, HTN, HLD, Gout and DM that presented to the ED with complaints of shortness of breath and Lower extremity edema. Labs showed an increasing white count and profound anemia. He had gone to see his PCP for his symptoms which the PCP felt there could be some possible a-fib and sent him for labs and subsequently to the ER. Patient states that the leg swelling and shortness of breath started approx 2 weeks ago. He also endorses that he could "feel my heartbeat in my ears". He started sleeping sitting up in a recliner as symptoms continued to worsen. Initial EKG on admission demonstrates SR with 1st degree AVB and PVC. Non- specific ST-T wave changes. Repeat this morning unchanged. Chest xray suggest CHF/pulmonary Edema, small pleural effusions with dependent consolidation H/H on admission 5.1/19.0 HST 109/16.8/22.8 TSH 11.6 patient is resting in bed at time of exam. Currently receiving one unit of PRBC's. Denies any chest pain, pressure or palpitations. Reports that his breathing has gotten "easier" and also that his leg swelling has decreased. 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 He is following closely with Heme/Onc due to his history of CLL with a generalized plan to start a chemo agent in one to two weeks. Review of telemetry demonstrates SR with occasional PVC's, Rare trigeminy pattern rates 70's-80's. Allergies Allergy/AdvReac Type Severity Reaction Status Date / Time No Known Allergies Allergy Unverified 02/16/23 09:48 Home Medications Medication Instructions Recorded Confirmed Type albuterol sulfate 90 mcg/actuation 2 puff inhalation Q4 PRN WHEEZING 03/26/24 03/26/24 History aerosol inhaler OR COUGH allopurinol 100 mg tablet 100 mg PO QPM 03/26/24 03/26/24 History aspirin 81 mg tablet,delayed 81 mg PO DAILY 03/26/24 03/26/24 History release doxazosin 2 mg tablet 2 mg PO QPM 03/26/24 03/26/24 History empagliflozin 25 mg tablet 25 mg PO QAM 03/26/24 03/26/24 History (Jardiance) furosemide 40 mg tablet 40 mg PO DAILY 03/26/24 03/26/24 History levothyroxine 50 mcg tablet 50 mcg PO DAILYBB 03/26/24 03/26/24 History metoprolol succinate 50 mg 50 mg PO HS 03/26/24 03/26/24 History tablet,extended release 24 hr rosuvastatin 10 mg tablet 10 mg PO QPM 03/26/24 03/26/24 History sitagliptin phosphate 50 1 tab PO BID 03/26/24 03/26/24 History mg-metformin 1,000 mg tablet (Elin) Patient History Medical History (Updated 03/27/24 @ 12:03 by Oc Márquez, ) Diabetes mellitus, type 2 Social History Smoking Status: Never smoker Tobacco Type: Declines Second Hand Exposure: No; Do You Dip or Chew Tobacco: No; Tobacco Cessation Education Requested by Patient: No Hx Alcohol Use: No Hx Substance Use: No Preferred Language: Setswana Communication Ability: Effective 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: No Beliefs That Will Affect Care: None Current Living Situation: Spouse Current Living Situation Comment: in a house with spouse Other Information That Helps Us Care for You: No Feels Safe at Home: Yes Safety Concerns: Feels Safe At This Time Assistive Devices: Cane, Glasses, Hospital Bed and Oxygen - Continuous Review of Systems Review of Systems: All systems reviewed & are unremarkable except as noted in HPI & below Physical Exam Constitutional: well developed, well nourished and + ill appearing (pale); no acute distress Neck: normal visual inspection and trachea midline Respiratory: normal respiratory effort and + cough (dry non-productive); no respiratory distress, no labored breathing and no retractions Auscultation: + diminished lung sounds and + crackles (bilateral bases ); no rales, no rhonchi and no wheezes Cardiovascular: Heart Sounds: normal S1 and normal S2; no murmur Vessels: dorsalis pedis pulses present; no JVD Extremities: + edema (+1 BLE) Skin: no rashes, warm and dry (pale) Psychiatric: A+Ox3, euthymic affect Results & Data Vital Signs (Past 12 Hours) Vital Signs Temp Pulse Pulse Resp BP BP Pulse Ox 03/27/24 08:14 36.4 C L 82 18 133/64 96 03/27/24 08:09 36.4 C L 82 18 133/64 96 03/27/24 07:54 36.9 C 83 16 130/68 95 03/27/24 06:10 36.7 C 85 16 127/63 95 03/27/24 06:10 36.7 C 85 16 127/63 95 03/27/24 05:58 36.4 C L 82 16 115/61 94 03/27/24 04:58 36.8 C 82 16 122/66 96 03/27/24 03:28 36.7 C 92 H 20 102/54 L 95 03/27/24 03:27 36.8 C 83 18 106/47 L 95 03/27/24 03:11 36.8 C 94 H 18 109/55 L 95 03/27/24 02:45 36.9 C 82 18 113/62 95 03/27/24 01:45 36.7 C 90 19 119/56 L 95 03/27/24 01:15 03/27/24 00:45 03/27/24 00:45 36.3 C L 100 H 20 123/64 95 03/27/24 00:36 90 03/27/24 00:30 03/27/24 00:25 03/27/24 00:15 36.7 C 93 H 22 123/58 L 90 03/27/24 00:15 36.7 C 93 H 22 123/58 L 90 03/27/24 00:00 37 C 90 26 H 115/52 L 91 03/26/24 23:43 36.9 C 93 H 22 116/57 L 90 03/26/24 22:04 37.0 C 91 H 24 105/60 92 03/26/24 21:25 90 23 111/72 92 03/26/24 20:26 92 H 24 92 03/26/24 20:26 90 20 134/74 92 Pulse Ox O2 Del Method O2 Del Method O2 Flow Rate 03/27/24 08:14 2 03/27/24 08:09 2 03/27/24 07:54 2 03/27/24 06:10 2 03/27/24 06:10 2 03/27/24 05:58 2 03/27/24 04:58 2 03/27/24 03:28 2 03/27/24 03:27 2 03/27/24 03:11 2 03/27/24 02:45 2 03/27/24 01:45 2 03/27/24 01:15 Room Air 03/27/24 00:45 Nasal Cannula 03/27/24 00:45 2 03/27/24 00:36 03/27/24 00:30 Nasal Cannula 2 03/27/24 00:25 90 Room Air 03/27/24 00:15 Room Air 03/27/24 00:15 03/27/24 00:00 03/26/24 23:43 03/26/24 22:04 Room Air 03/26/24 21:25 Room Air 03/26/24 20:26 Room Air 03/26/24 20:26 Room Air Laboratory Results Cardiac Enzymes 03/26/24 03/26/24 03/27/24 Range/Units 20:24 22:31 06:49 AST 30 (13-39) U/L Lactate Dehydrogenase 338 H (86-244) U/L Troponin I High Sens 109.0 H* 16.8 D 22.8 H (0-20) pg/ml B-Natriuretic Peptide 500 H (0-100) pg/ml Coagulation 03/26/24 Range/Units 20:24 PT 12.4 H (9.0-12.0) Seconds B-Natriuretic Peptide 500 H (0-100) pg/ml CBC 03/26/24 03/27/24 Range/Units 20:24 06:49 WBC 282.26 H* 256.87 H* (4.8-10.8) K/ul RBC 1.64 L 2.01 L (4.70-6.10) M/uL Hgb 5.1 L* 5.9 L* (14.0-18.0) g/dl Hct 19.0 L* 21.7 L (42.0-52.0) % Plt Count 164 144 (130-400) K/uL Neut # (Auto) 7.78 H 7.09 H (1.40-6.50) K/uL Lymph # (Auto) 254.87 H 231.30 H (1.20-3.40) K/uL [place] # (Auto) 17.80 H 16.70 H (0.11-0.59) K/uL Eos # (Auto) 0.36 0.34 (0.00-0.50) K/uL Baso # (Auto) 0.29 H 0.30 H (0.00-0.20) K/uL Comprehensive Metabolic Panel 03/26/24 03/27/24 Range/Units 20:24 06:49 Sodium 140 141 (136-145) mmol/L Potassium 5.4 H 5.7 H (3.5-5.1) mmol/L Chloride 106 106 (98-107) mmol/L Carbon Dioxide 26 30 (21-32) mmol/L BUN 28 H 28 H (6-23) mg/dl Creatinine 1.09 1.05 (0.6-1.4) mg/dl Glucose 217 H 145 H (70-99(Fasting)) mg/dl Calcium 9.3 9.0 (8.6-10.3) mg/dl AST 30 (13-39) U/L ALT 9 (7-52) U/L Alkaline Phosphatase 121 H (34-104) U/L Total Protein 6.4 (6.0-8.3) gm/dl Albumin 4.5 (3.4-5.0) gm/dl Intake and Output 03/26/24 03/27/24 03/27/24 22:59 06:59 14:59 Intake Total 0 / 0 0 / 0 Output Total 2049 Balance -2049 0 / 0 Intake: Oral 0 / 0 Intake (Blood Product) Amt 0 / 0 0 / 0 Packed Cells, Leukored, Irrad 0 / 0 Unit [id number] Packed Cells, Leukored, Irrad 0 / 0 Unit [id number] Packed Cells, Leukored, Irrad 0 / 0 Unit [id number] Output: Urine 2049 Other: Other Intake Source NPO Weight 82 kg 100.7 kg Weight Measurement Method Standing Scale
[2024-03-27 08:28] LABS: Anisocytosis Present; Basophils % (auto) 0.1 %; Eosinophils # (auto) 0.34 K/uL (0.00-0.50); Eosinophils % (auto) 0.1 %; Immature Granulocytes # (auto) 1.14 K/uL (0.01-0.20); Immature Granulocytes % (auto) 0.4 %; Macrocytosis Present; Monocytes % (auto) 6.5 %; Neutrophils # (auto) 7.09 K/uL (1.40-6.50); Neutrophils % (auto) 2.9 %; Polychromasia 1+; Smudge Cells Present
[2024-03-27] MEDS: SODIUM ZIRCONIUM CYCLOSILICATE 10 GM PACKET PO STA (09:01)
--- NOTE | 2024-03-27 09:12 | Nephrology Consultation ---
Date of Consultation March 27, 2024 Assessment & Plan (1) Hyperkalemia: w/ WBC count >250K, some degree of pseudohyperkalemia may be present here from lysis of fragile leukemic cells. No anion gap; no e/o acidosis. RECOMMEND -do NOT send specimens through tube system but hand deliver to lab if not already doing so -allow fibrin-rich clotting to separate the serum from the cells before centrifuging >> this will lessen cell lysis by stabilizing fragile cells >>have discussed above w/ lab and they will arrange special tube/transport needed for above for 11 AM lab (2) Heart failure: concern for high output heart failure from profound anemia. on -f/u cardiology recs -recommend 10-20 mg lasix after every unit pRBC and continue 20 mg IV daily lasix (IV analogue of his OP dose) until we have better sense of his K status (3) Chronic lymphocytic leukemia: as per hematology (4) Anemia: as per hematology and primary service; transfuse prn > s/p 3 units 24 hrs; hgb as above History of Present Illness Reason for Consultation: hyperkalemia Requesting Physician: Dr Arroyo Attending Physician: Mansoor Turcios MD History of Present Illness 83 y/o M whom I'm asked to see for hyperkalemia was admitted last evening with hgb 5.1 after presenting to PCP w/ a few weeks of worsening and dyspnea and a few days of lower extremity edema, 13 lb wt gain in a few weeks to the point where he could hardly get his shoes on; also w/ palpitations, orthopnea. PMH includes CLL, HTN, gout, DM, HL. There was concern as OP for new onset atrial fibrillation as well but this has not been borne out so far with cardiac monitoring/ cardiology evaluation. Presenting K was 5.4, up to 5.7 this am. WBC 282K on presentation > 257K this am. He is on oxygen NC w/ SBP maintained > 100, HR 80-90s. He has had 2 units pRBC, bringing hgb to 5.9 this am, and is getting 3rd unit at my eval. He had a 20 mg dose of IV lasix and 10 gm of lokelma. He is on jardiance and daily 40 mg lasix as OP, as well as metformin. He tells me he feels a bit better but endorses ongoing dyspnea, generalized weakness/fatigue, edema. Appetite has been touch and go. no rash, no dysuria or other voiding sx. no active bleeding he's aware of ; no chest pain/pressure. and daughter at bedside as I see pt. Allergies Allergy/AdvReac Type Severity Reaction Status Date / Time No Known Allergies Allergy Unverified 02/16/23 09:48 Home Medications Medication Instructions Recorded Confirmed Type albuterol sulfate 90 mcg/actuation 2 puff inhalation Q4 PRN WHEEZING 03/26/24 03/26/24 History aerosol inhaler OR COUGH allopurinol 100 mg tablet 100 mg PO QPM 03/26/24 03/26/24 History aspirin 81 mg tablet,delayed 81 mg PO DAILY 03/26/24 03/26/24 History release doxazosin 2 mg tablet 2 mg PO QPM 03/26/24 03/26/24 History empagliflozin 25 mg tablet 25 mg PO QAM 03/26/24 03/26/24 History (Jardiance) furosemide 40 mg tablet 40 mg PO DAILY 03/26/24 03/26/24 History levothyroxine 50 mcg tablet 50 mcg PO DAILYBB 03/26/24 03/26/24 History metoprolol succinate 50 mg 50 mg PO HS 03/26/24 03/26/24 History tablet,extended release 24 hr rosuvastatin 10 mg tablet 10 mg PO QPM 03/26/24 03/26/24 History sitagliptin phosphate 50 1 tab PO BID 03/26/24 03/26/24 History mg-metformin 1,000 mg tablet (Elin) Patient History Medical History Diabetes mellitus, type 2 Social History Smoking Status: Never smoker Tobacco Type: Declines Second Hand Exposure: No; Do You Dip or Chew Tobacco: No; Tobacco Cessation Education Requested by Patient: No Hx Alcohol Use: No Hx Substance Use: No Preferred Language: Mohawk Communication Ability: Effective Cake Puncher Required: No Beliefs That Will Affect Care: None Current Living Situation: Spouse Current Living Situation Comment: in a house with spouse Other Information That Helps Us Care for You: No Feels Safe at Home: Yes Safety Concerns: Feels Safe At This Time Assistive Devices: Cane, Glasses, Hospital Bed and Oxygen - Continuous Review of Systems 2 Review of Systems: All systems reviewed & are unremarkable except as noted in HPI & below Physical Exam 2 Constitutional: well developed (sitting in bed on 02NC) and well nourished; no acute distress Eyes: EOM intact bilaterally ENMT: Ears: no external ear abnormality Nose: no external nose abnormality Mouth: + dry oral mucous membranes Neck: no nuchal rigidity Respiratory: normal respiratory effort and + cough (occasional dry) A uscultation: + diminished lung sounds (BL bases) and + crackles (fine BL) Cardiovascular: Heart Sounds: normal S1, normal S2 and + murmur E xtremities: + edema (2+ BL ankles/pedal and prox legs) Gastrointestinal (Abdomen): Inspection/Auscultation: no abdominal edema P ercussion/Palpation: abdomen soft; abdomen nontender and no ascites Musculoskeletal: Extremities: strength 5/5 throughout Skin: no rashes, warm and dry Neurologic: braswell, fluent speech, no tremor Results & Data Vital Signs (Past 12 Hours) Vital Signs Temp Pulse Pulse Resp BP BP Pulse Ox 03/27/24 08:59 36.5 C 83 18 123/69 95 03/27/24 08:29 36.4 C L 82 18 133/64 96 03/27/24 08:14 36.4 C L 82 18 133/64 96 03/27/24 08:09 36.4 C L 82 18 133/64 96 03/27/24 07:54 36.9 C 83 16 130/68 95 03/27/24 06:10 36.7 C 85 16 127/63 95 03/27/24 06:10 36.7 C 85 16 127/63 95 03/27/24 05:58 36.4 C L 82 16 115/61 94 03/27/24 04:58 36.8 C 82 16 122/66 96 03/27/24 03:28 36.7 C 92 H 20 102/54 L 95 03/27/24 03:27 36.8 C 83 18 106/47 L 95 03/27/24 03:11 36.8 C 94 H 18 109/55 L 95 03/27/24 02:45 36.9 C 82 18 113/62 95 03/27/24 01:45 36.7 C 90 19 119/56 L 95 03/27/24 01:15 03/27/24 00:45 03/27/24 00:45 36.3 C L 100 H 20 123/64 95 03/27/24 00:36 90 03/27/24 00:30 03/27/24 00:25 03/27/24 00:15 36.7 C 93 H 22 123/58 L 90 03/27/24 00:15 36.7 C 93 H 22 123/58 L 90 03/27/24 00:00 37 C 90 26 H 115/52 L 91 03/26/24 23:43 36.9 C 93 H 22 116/57 L 90 03/26/24 22:04 37.0 C 91 H 24 105/60 92 03/26/24 21:25 90 23 111/72 92 Pulse Ox O2 Del Method O2 Del Method O2 Flow Rate 03/27/24 08:59 2 03/27/24 08:29 2.0 03/27/24 08:14 2 03/27/24 08:09 2 03/27/24 07:54 2 03/27/24 06:10 2 03/27/24 06:10 2 03/27/24 05:58 2 03/27/24 04:58 2 03/27/24 03:28 2 03/27/24 03:27 2 03/27/24 03:11 2 03/27/24 02:45 2 03/27/24 01:45 2 03/27/24 01:15 Room Air 03/27/24 00:45 Nasal Cannula 03/27/24 00:45 2 03/27/24 00:36 03/27/24 00:30 Nasal Cannula 2 03/27/24 00:25 90 Room Air 03/27/24 00:15 Room Air 03/27/24 00:15 03/27/24 00:00 03/26/24 23:43 03/26/24 22:04 Room Air 03/26/24 21:25 Room Air Laboratory Results 03/27/24 06:49 03/27/24 06:49 Diagnostic Findings cxr (images reviewed by me personally) notable primarily for heart failure, pulmonary edema
[2024-03-27] MEDS: ENOXAPARIN INJ 40 MG/0.4 ML SYR SQ SCH (09:37)
[2024-03-27] MEDS: ASPIRIN 81 MG ECTAB PO SCH (09:38)
[2024-03-27 10:07] LABS: Reticulocyte % 1.74 % (0.50-2.00)
[2024-03-27] MEDS ORDERED: SODIUM ZIRCONIUM CYCLOSILICATE 10 GM PACKET PO SCH (11:00)
--- NOTE | 2024-03-27 11:18 | Electrocardiogram Report ---
Test Reason : Blood Pressure : */* mmHG Vent. Rate : 91 BPM Atrial Rate : 91 BPM P-R Int : 218 ms QRS Dur : 94 ms QT Int : 368 ms P-R-T Axes : 74 13 110 degrees QTcB Int : 452 ms Sinus rhythm with 1st degree A-V block with frequent Premature ventricular complexes Nonspecific ST and T wave abnormality Abnormal ECG When compared with ECG of 15-Mar-1999 09:34, Premature ventricular complexes are now Present ME interval has increased Nonspecific T wave abnormality, worse in Lateral leads Confirmed by Robert Ramos ([id number]) on 03/27/2024 11:18:17 AM Referred By: Lang Colon Confirmed By: Robert Ramos
--- NOTE | 2024-03-27 11:27 | Electrocardiogram Report ---
Test Reason : Blood Pressure : */* mmHG Vent. Rate : 83 BPM Atrial Rate : 83 BPM P-R Int : 212 ms QRS Dur : 96 ms QT Int : 380 ms P-R-T Axes : 92 35 99 degrees QTcB Int : 446 ms Sinus rhythm with 1st degree A-V block with frequent Premature ventricular complexes Nonspecific ST and T wave abnormality Abnormal ECG When compared with ECG of 26-Mar-2024 20:18, (unconfirmed) Nonspecific T wave abnormality, improved in Lateral leads Confirmed by Robert Ramos ([id number]) on 03/27/2024 11:26:31 AM Referred By: Lang Colon Confirmed By: Robert Ramos
[2024-03-27] MEDS: FUROSEMIDE 40 MG/4 ML VIAL IV SCH (11:49)
--- NOTE | 2024-03-27 12:52 | Hospitalist Progress Note ---
Date of Service March 27, 2024 Recommendation from mergers and acquisitions consultant: Intravenous methylprednisolone 80 mg once a day until the hemoglobin is around 8 and before discharge Oral prednisone 80 mg a day on discharge and mergers and acquisitions consultant will have a follow-up of in about 1 week Folic acid [address] Radha Turcios Assessment & Plan (1) Anemia: Plan: 83-year-old male with past medical significant for CLL, gout, hypertension, hypothyroidism, diabetes, hyperlipidemia presents with shortness of breath and worsening lower extremity edema and outpatient labs showed increasing WBC and anemia. Patient states he was diagnosed with CLL 2 years ago and is following with hematology/oncology and recently it was decided to start on chemo for which he has appointment with heme-onc at end of this month. Last couple weeks he is having lower extremity edema which is progressively getting worse and and also having shortness of breath which prompted him to go to the PCP. PCP thought there could be some A-fib and advised to go to [facility] for labs. After labs because of the doubling up of the WBC and anemia he was sent here for admission. Patient is currently resting comfortably and answering questions appropriately and speaking in full sentences. Family is in the room. Denies any headache. Vision is okay. No runny nose or sore throat. No cough. Appetite is okay. No difficulty swallowing. Denies any chest pain. No nausea. No abdominal pain. Normal bowel and bladder movements. Denies any blood in the stools. No hematuria. Hemodynamics are okay. Secondary to CLL- no evidence of GI bleed Hemoglobin 5.1 at presentation Hemoglobin 10.5 in December 2023 Hemoccult is pending He has been getting irradiated blood transfusion since this morning and already feeling better Hematology consult awaited Monitor CBC (2) Hyperkalemia: Plan: Hyperkalemia Potassium 5.4 1 admission and went up to 5.7 Getting IV Lasix Appreciate nephrology input and recommendation Hyperkalemia could be pseudohyperkalemia due to hemolysis Received 2 doses of Lokelma and will monitor PRP (3) Acute heart failure with preserved ejection fraction (HFpEF): Plan: Presented with increasing shortness of breath Associated bilateral leg edema Exacerbated by anemia He has been getting Lasix intravenously Appreciate cardiology input and recommendation Echo of the heart showed borderline concentric LVH, no wall motion abnormalities, systolic function with EF 55 to 60%, left atrium is mildly dilated, aortic valve sclerosis mild without significant stenosis, there is mild mitral regurgitation and diastolic dysfunction grade 2 (4) Chronic lymphocytic leukemia: Plan: CLL Increasing WBC WBC 282 There is a plan to start chemo as per patient Heme/onco consult in a.m.- awaiting input and recommendation 7.6 LDH is 338 Iron level is high Plan Other significant medical conditions remained stable and are as below: Diabetes Hold p.o. medications Sliding scale Will follow HbA1c- Will follow blood sugars Hypothyroidism On Synthyroid TSH is 11 but free T4 okay Follow-up with PCP.. Hypertension On metoprolol succinate History of gout On allopurinol Hyperlipidemia On statin DVT prophylaxis Lovenox Disposition Telemetry Full code. Admission and Anticipated Discharge Date Admission Date: March 26, 2024 Subjective 03/27/2024 The patient was seen and examined in telemetry unit He was admitted with increasing leg swelling and increasing shortness of breath and noted to have very low hemoglobin He has been getting blood transfusion and feels a lot better Review of Systems Review of Systems: all systems reviewed and are unremarkable except as noted below Physical Exam Physical Exam: lying in bed without any acute distress Constitutional: well developed, well nourished, + ill appearing and + obese Eyes: PERRL, conjunctivae normal, anicteric sclerae ENMT: external ear and nose normal, oropharynx normal Neck: trachea midline, no thyromegaly Respiratory: no respiratory distress Auscultation: + diminished lung sounds and + crackles ( minimal crackles at the bases) Cardiovascular: Rate/Rhythm: regular rate and regular rhythm; not tachycardic Heart Sounds: normal S1, normal S2 and + murmur Extremities: + edema ( 1+ edema bilateral) Musculoskeletal: No acute arthritis involving any of the joint Neurologic: normal touch/pain/proprioception and moves all extremities; no focal motor deficits Lymphatic: no cervical or axillary lymphadenopathy Results & Data Results & Data Vital Signs (Past 12 Hours) Vital Signs Temp Pulse Resp BP Pulse Ox O2 Del Method O2 Flow Rate 03/27/24 11:59 36.7 C 84 18 121/69 93 2 03/27/24 10:39 Nasal Cannula 2 03/27/24 10:38 82 03/27/24 09:59 36.5 C 87 18 133/66 96 2 03/27/24 08:59 36.5 C 83 18 123/69 95 2 03/27/24 08:29 36.4 C L 82 18 133/64 96 2.0 03/27/24 08:14 36.4 C L 82 18 133/64 96 2 03/27/24 08:09 36.4 C L 82 18 133/64 96 2 03/27/24 07:54 36.9 C 83 16 130/68 95 2 03/27/24 06:10 36.7 C 85 16 127/63 95 2 03/27/24 06:10 36.7 C 85 16 127/63 95 2 03/27/24 05:58 36.4 C L 82 16 115/61 94 2 03/27/24 04:58 36.8 C 82 16 122/66 96 2 03/27/24 03:28 36.7 C 92 H 20 102/54 L 95 2 03/27/24 03:27 36.8 C 83 18 106/47 L 95 2 03/27/24 03:11 36.8 C 94 H 18 109/55 L 95 2 03/27/24 02:45 36.9 C 82 18 113/62 95 2 03/27/24 01:45 36.7 C 90 19 119/56 L 95 2 03/27/24 01:15 Room Air 03/27/24 00:45 Nasal Cannula 03/27/24 00:45 36.3 C L 100 H 20 123/64 95 2 03/27/24 00:36 90 Laboratory Results Short CBC 03/26/24 03/27/24 Range/Units 20:24 06:49 WBC 282.26 H* 256.87 H* (4.8-10.8) K/ul Hgb 5.1 L* 5.9 L* (14.0-18.0) g/dl Hct 19.0 L* 21.7 L (42.0-52.0) % Plt Count 164 144 (130-400) K/uL BMP 03/26/24 03/27/24 20:24 06:49 Sodium 140 141 Potassium 5.4 H 5.7 H Chloride 106 106 Carbon Dioxide 26 30 BUN 28 H 28 H Creatinine 1.09 1.05 Glucose 217 H 145 H Calcium 9.3 9.0 Liver Function 03/26/24 Range/Units 20:24 Total Bilirubin 1.2 H (0.2-1.0) mg/dl AST 30 (13-39) U/L ALT 9 (7-52) U/L Alkaline Phosphatase 121 H (34-104) U/L Albumin 4.5 (3.4-5.0) gm/dl Urine 03/26/24 Range/Units 21:30 Urine Color Yellow Urine Appearance Clear (Clear) Urine pH 5.0 (4.5-7.5) Ur Specific [place] 1.013 (1.000-1.030) Urine Protein Negative (Negative) Urine Glucose (UA) 3+ H (Negative) Medications Administered Current Inpatient Medications Acetaminophen (Acetaminophen 325 Mg Tab) 650 mg PO Q4H PRN PRN Reason: Pain or Fever Stop: 04/26/24 00:24 Albuterol (Albuterol Hfa 8 Gm Inhaler) 2 puffs INH Q4 PRN PRN Reason: WHEEZING OR COUGH Stop: 04/26/24 00:24 Allopurinol (Allopurinol 100 Mg Tab) 100 mg PO QPM YING Stop: 04/26/24 20:59 Aspirin (Aspirin 81 Mg Ectab) 81 mg PO DAILY YING Stop: 04/26/24 08:59 Last Admin: 03/27/24 09:38 Dose: 81 mg Dextrose (Dextrose 50% 50 Ml Syringe) 25 - 50 ml IV UD PRN; Protocol PRN Reason: Hypoglycemia Protocol Stop: 04/26/24 00:24 Doxazosin Mesylate (Doxazosin Mesylate Tab 2 Mg Tab) 2 mg PO QPM YING Stop: 04/26/24 20:59 Enoxaparin Sodium (Enoxaparin Inj 40 Mg/0.4 Ml Syr) 40 mg SQ Q24H YING Stop: 04/26/24 07:59 Last Admin: 03/27/24 09:37 Dose: 40 mg Furosemide (Furosemide 40 Mg/4 Ml Vial) 40 mg IV DAILY YING Stop: 04/26/24 08:59 Last Admin: 03/27/24 11:49 Dose: 20 mg Glucagon (Glucagon For Inj 1 Mg Vial) 1 mg SQ UD PRN; Protocol PRN Reason: Hypoglycemia Protocol Stop: 04/26/24 00:24 Glucose (Glucose 40% Gel 15 Gm Tube) 15 - 30 gm PO UD PRN; Protocol PRN Reason: Hypoglycemia Protocol Stop: 04/26/24 00:24 Glucose (Glucose 10 Tab/Tube) 4 - 8 tab PO UD PRN; Protocol PRN Reason: Hypoglycemia Treatment Stop: 04/26/24 00:24 Insulin Aspart (Insulin Aspart Per Unit Charge) 0 units SC Q6 [facility] Stop: 04/26/24 05:59 Last Admin: 03/27/24 06:07 Dose: 1 units Levothyroxine Sodium (Levothyroxine Sodium 50 Mcg Tablet) 50 mcg PO DAILYBB [facility] Stop: 04/26/24 06:29 Last Admin: 03/27/24 06:09 Dose: 50 mcg Metoprolol Succinate (Metoprolol Succ 50mg Ext Rel Tab) 50 mg PO HS [facility] Stop: 04/26/24 20:59 Miscellaneous (Carbohydrates For Hypoglycemia ) 15 - 30 gm PO UD PRN PRN Reason: Hypoglycemia Protocol Stop: 04/26/24 00:24 Nitroglycerin (Nitroglycerin Sl 0.4 Mg/Tab Tab) 0.4 mg SL Q5M PRN PRN Reason: Chest Pain Stop: 04/26/24 00:24 Rosuvastatin Calcium (Rosuvastatin Calcium 10 Mg Tab) 10 mg PO QPM [facility] Stop: 04/26/24 20:59
[2024-03-27 13:06] LABS: BUN Creatinine Ratio 23.8 (10-20); Calcium 9.5 mg/dl (8.6-10.3); Creatinine Clr Calc Pharmacy 70.5 ml/min; Potassium 4.1 mmol/L (3.5-5.1)
[2024-03-27 13:11] LABS: Hematocrit (blood only) 25.7 % (42.0-52.0); Hemoglobin 7.2 g/dl (14.0-18.0)
--- NOTE | 2024-03-27 15:21 | Ultrasound Report ---
BILATERAL LOWER EXTREMITY VENOUS DOPPLER CLINICAL HISTORY: b/l lower ext edema. dvt? COMPARISON STUDY: No previous studies for comparison. TECHNIQUE: Sonography of the deep venous system of the bilateral lower extremities was performed. Co mpression and augmentation were evaluated. FINDINGS: The bilateral common femoral, superficial femoral and popliteal veins were compressible. A ugmentation was normal. Flow was shown within the deep calf vessels. IMPRESSION: No evidence of deep venous thrombus within the bilateral lower extremities. ACT 112: Negative or not required by law. Electronically signed by: Jj Edward M.D. 03/27/2024 3:19 PM
[2024-03-27] MEDS ORDERED: methylPREDNISolone 10 mg/mL (For Ped Dose < 7mg) IV SCH (17:00)
[2024-03-27] MEDS: methylPREDNISolone 80 MG in SYRINGE 0 ML IV SCH (19:03)
[2024-03-27] MEDS: FOLIC ACID 1 MG TAB PO SCH (19:03)
[2024-03-27] MEDS: DOXAZosin MESYLATE TAB 2 MG TAB PO SCH (20:28)
[2024-03-27] MEDS: ROSUVASTATIN CALCIUM 10 MG TAB PO SCH (20:28)
[2024-03-27] MEDS: METOPROLOL SUCC 50MG EXT REL TAB PO SCH (20:28)
[2024-03-27] MEDS: allopurinoL 100 MG TAB PO SCH (20:28)
[2024-03-28 07:24] LABS: Calcium 9.2 mg/dl (8.6-10.3); Creatinine Clr Calc Pharmacy 75.9 ml/min; Magnesium 2.1 mg/dl (1.7-2.4); Potassium 4.6 mmol/L (3.5-5.1)
[2024-03-28 08:01] LABS: Hematocrit (blood only) 23.4 % (42.0-52.0); Hemoglobin 6.8 g/dl (14.0-18.0); Mean Corpuscular Hemoglobin 30.2 pg (25.0-34.0); Mean Corpuscular Hgb Conc 29.1 g/dL (32.0-36.0); Mean Platelet Volume 10.6 fL (9.4-12.4); Platelet Count 133 K/uL (130-400); RDW Coefficient of Variation 25.4 % (11.5-14.5); Red Blood Count 2.25 M/uL (4.70-6.10)
[2024-03-28] MEDS ORDERED: SODIUM CHLORIDE 0.9% 250 ML IV PRN (08:10)
[2024-03-28 08:40] LABS: Anisocytosis Present; Basophils # (auto) 0.24 K/uL (0.00-0.20); Basophils % (auto) 0.1 %; Eosinophils % (auto) 0.1 %; Immature Granulocytes % (auto) 0.6 %; Lymphocytes # (auto) 185.28 K/uL (1.20-3.40); Lymphocytes % (auto) 89.3 %; Monocytes # (auto) 11.22 K/uL (0.11-0.59); Monocytes % (auto) 5.4 %; Neutrophils # (auto) 9.23 K/uL (1.40-6.50); Neutrophils % (auto) 4.5 %; Nucleated RBC # (auto) 0.04 K/uL (0.00-0.12); Smudge Cells Present; White Blood Count 207.47 K/ul (4.8-10.8)
[2024-03-28] MEDS: FUROSEMIDE INJ 20 MG/2 ML VIAL IV ONE (08:54)
--- NOTE | 2024-03-28 08:54 | Cardiology Progress Note ---
Date of Service March 28, 2024 Assessment & Plan (1) Acute heart failure with preserved ejection fraction (HFpEF): (2) Hyperkalemia: (3) Anemia: (4) Chronic lymphocytic leukemia: Plan Assessment: 83 year old male with CLL presents to the ER after abnormal labs and 2 week progressively working shortness of breath, lower extremity edema and palpitations. Plan: Acute Heart failure with preserved ejection fraction: -PCP questioned possible A-fib although no EKG was obtained outpatient and both EKGs and Telemetry here have not proven otherwise. Not out of the question given patient's cancer process and profound anemia. we will continue to monitor closely on telemetry. When patient is stable for discharge, may consider protracted cardiac monitoring with a 14 day zio if we are highly suspicious. -Continue with Furosemide 40mg IV daily. May need additional dosing if patient will be receiving more than one unit of PRBCs -Close monitoring of renal function and serum electrolytes. goal serum K> 4.0 and serum mag > 2.0 -Strict I&O and daily weights with a standing scale. -Continue Toprol xl 50mg HS for rate control and suppression of PVC's -BP controlled. Continue Doxazosin as per home regimen. -Continue ASA therapy at this time. -Thyroid function as per management per primary team. Hyperkalemia: -Already addressed by Primary team as patient has received 2 doses of Lokelma -patient also to continue IV diuretic and his insulin therapy Anemia CLL -Chronic anemia. Admission HgB 5.1, currently receiving 1 unit of PRBCs -Denies any ezekiel bleeding -Close management per primary team and Heme/Onc 03/28/2024: -Patient resting comfortably in bed without complaint. Continues with low HgB, awaiting another unit of PRBCs to arrive for transfusion. -Continues with mild hypervolemia although improved since yesterday. Diuresing well. Continue Furosemide 40mg IV daily. -Echocardiogram notes normal LVEF 55-60%, no regional wall motion abnormalities. Aortic valve sclerosis without stenosis and mild MR. Grade II diastolic dysfunction. -Renal function stable. Electrolytes including Mag are WNL -Close monitoring of renal function and serum electrolytes. goal serum K> 4.0 and serum mag > 2.0 -Strict I&O and daily weights with a standing scale. -Continue Toprol xl 50mg HS for rate control and suppression of PVC's. Aware that patient has had a few brief episodes of bradycardia, asymptomatic on telemetry; however, PVC burden remains elevated. We will continue his beta dimitri at this time and monitor closely. Will recommend that when patient is appropriate for discharge that he have OP protracted cardiac monitoring with a ZIO for further assessment. -BP controlled. Continue Doxazosin as per home regimen. -Continue ASA therapy at this time. -Thyroid function as per management per primary team. -Heme/onc on consult given his CLL Case has been discussed with Dr. Márquez. Further recommendations regarding plan of care as per his assessment. I spent a total of 30 minutes on the date of service in preparation, delivery, documentation of the care provided to the patient excluding any time spent in the performance of separately billed services. GRISELDA Medina [facility] Admission and Anticipated Discharge Date Admission Date: March 26, 2024 Supervising Physician Co-Signing Physician Notes Attending attestation: Case reviewed with the advanced practitioner. I have personally performed a history and physical examination on the patient. I have reviewed the advanced practitioner's documentation on the date of service referenced in note, and I agree with, and take responsibility for the plan of care. * Continue furosemide 40 mg IV daily. I spent a total of 20 minutes coordinating, documenting, and providing care for this patient excluding time spent in the performance of separately billed services or time spent by another provider. Oc Márquez, Subjective 03/28/2024: Patient seen and examined in follow up today. Feeling ok. Denies any cardiac concerns. Denies chest pain, pressure, palpitations. No shortness of breath, PND, pre- syncope, syncope. He states that his leg swelling has improved significantly. Labs, vitals, diagnostics, telemetry and documentation reviewed. Telemetry reviewed showing SR with 1st degree AVB and PVC's. REview of trends is demonstrating a increased burden of PVC's, couplets, bigeminy, trigeminy and a 4 beat run of VT overnight. patient denies PAM. there is also a brief episode of bradycardia lasting less than 10 seconds with a rate of 32 bpm and 0657 which patient claims he was awake and was asymptomatic. There was also a brief episode lasting less than 6 seconds in which patient became bradycardic with bigeminy for 3 complexes and then resumed NSR rates in the 60's. again asymptomatic. Electrolytes including Mag are within normal range. -2765 fluid balance. -4Kg weight deficit. Review of Systems Review of Systems: All systems reviewed & are unremarkable except as noted in HPI & below Physical Exam Constitutional: well developed, well nourished and + ill appearing (pale); no acute distress Neck: normal visual inspection and trachea midline Respiratory: normal respiratory effort and + cough (dry non-productive); no respiratory distress, no labored breathing and no retractions Auscultation: + diminished lung sounds and + crackles (bilateral bases ); no rales, no rhonchi and no wheezes Cardiovascular: Rate/Rhythm: regular rate, regular rhythm and + bradycardic (intermittent episodes of bradycardia ) Heart Sounds: normal S1 and normal S2; no murmur Vessels: dorsalis pedis pulses present; no JVD Extremities: + edema (Trace to +1 BLE) Skin: no rashes, warm and dry (pale) Psychiatric: A+Ox3, euthymic affect Results & Data Vital Signs (Past 12 Hours) Vital Signs Temp Pulse Pulse Resp BP Pulse Ox Pulse Ox 03/28/24 08:28 03/28/24 08:02 36.6 C 85 17 106/58 L 95 03/28/24 02:43 36.5 C 85 16 146/68 H 96 03/28/24 00:25 94 03/27/24 23:08 36.6 C 88 17 136/63 92 03/27/24 21:47 70 O2 Del Method O2 Del Method O2 Flow Rate O2 Flow Rate 03/28/24 08:28 Nasal Cannula 1 03/28/24 08:02 Nasal Cannula 2 03/28/24 02:43 Room Air 03/28/24 00:25 Nasal Cannula 1 03/27/24 23:08 Nasal Cannula 2 03/27/24 21:47 Laboratory Results Cardiac Enzymes 03/27/24 Range/Units 12:23 Troponin I High Sens 21.1 H (0-20) pg/ml CBC 03/27/24 03/28/24 Range/Units 12:23 06:20 WBC 207.47 H* (4.8-10.8) K/ul RBC 2.25 L (4.70-6.10) M/uL Hgb 7.2 L 6.8 L* (14.0-18.0) g/dl Hct 25.7 L 23.4 L (42.0-52.0) % Plt Count 133 (130-400) K/uL Neut # (Auto) 9.23 H (1.40-6.50) K/uL Lymph # (Auto) 185.28 H (1.20-3.40) K/uL [place] # (Auto) 11.22 H (0.11-0.59) K/uL Eos # (Auto) 0.20 (0.00-0.50) K/uL Baso # (Auto) 0.24 H (0.00-0.20) K/uL Comprehensive Metabolic Panel 03/27/24 03/28/24 Range/Units 12:23 06:20 Sodium 142 142 (136-145) mmol/L Potassium 4.1 D 4.6 (3.5-5.1) mmol/L Chloride 105 105 (98-107) mmol/L Carbon Dioxide 31 29 (21-32) mmol/L BUN 24 H 34 H (6-23) mg/dl Creatinine 1.01 0.92 (0.6-1.4) mg/dl Glucose 163 H 177 H (70-99(Fasting)) mg/dl Calcium 9.5 9.2 (8.6-10.3) mg/dl Intake and Output 03/27/24 03/28/24 03/28/24 22:59 06:59 14:59 Output Total 2150 / 3075 625 / 3075 Balance -2150 / -2765 -625 / -2765 Output: Urine 2149 / 3074 625 / 3075 Other: # Unmeasured Voids 1 Weight 96.6 kg Weight Measurement Method Standing Scale
--- NOTE | 2024-03-28 12:44 | Hospitalist Progress Note ---
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 Subsequent high output heart failure. Patient has significantly improved symptom owens, however it remains anemic Transfuse additional unit of packed red blood cells Continue steroids as recommended by oncology, transition to oral prednisone in the morning Folic acid supplementation Anticipate glucose to increase with the steroids, will need additional insulin coverage Communication with nephrology, will monitor his potassium, most likely hy perkalemia due to lab issues associated with his CLL. Activity as tolerated Okay for MedSurg and daughter at bedside extensively updated 53 minutes spent on coordination care, evaluation of patient at bedside, review of medical record, communication with medical team Admission and Anticipated Discharge Date Admission Date: March 26, 2024 Subjective Patient denies any lightheadedness or dizziness. No chest pain. Little bit of shortness of breath with activity. Physical Exam Physical Exam: Constitutional: Alert, no acute distress HEENT: Mucous membranes moist. Lungs:decreased, no wheezes rales or rhonchi CV: S1-S2, regular Abdomen: Soft, nontender, nondistended Extremities: 1+ pretibial edema Neuro: No focal deficits Psych: Cooperative, normal mood Results & Data Results & Data Vital Signs (Past 12 Hours) Vital Signs Temp Pulse Pulse Resp BP BP Pulse Ox 03/28/24 12:31 36.5 C 70 20 121/69 94 03/28/24 10:55 36.5 C 84 20 118/58 L 94 03/28/24 08:28 03/28/24 08:02 36.6 C 85 17 106/58 L 95 03/28/24 02:43 36.5 C 85 16 146/68 H 96 O2 Del Method O2 Flow Rate 03/28/24 12:31 1 03/28/24 10:55 Nasal Cannula 1 03/28/24 08:28 Nasal Cannula 1 03/28/24 08:02 Nasal Cannula 2 03/28/24 02:43 Room Air Diagnostic Findings Reviewed imaging, laboratory and diagnostic studies. Pertinent findings as below. WBCs 207 Hemoglobin 6.8 Potassium 4.6 Creatinine 0.9 Magnesium 2.1 Reviewed echocardiogram, normal ejection fraction 55 to 60% grade 2 diastolic dysfunction
--- NOTE | 2024-03-28 14:52 | Electrocardiogram Report ---
Test Reason : Blood Pressure : */* mmHG Vent. Rate : 80 BPM Atrial Rate : 80 BPM P-R Int : 224 ms QRS Dur : 96 ms QT Int : 402 ms P-R-T Axes : 59 18 90 degrees QTcB Int : 463 ms Sinus rhythm with 1st degree A-V block with occasional Premature ventricular complexes Nonspecific ST and T wave abnormality Abnormal ECG When compared with ECG of 27-Mar-2024 05:14, No significant change was found Confirmed by Robert Ramos [id number]) on 03/28/2024 2:52:36 PM Referred By: Lang Colon Confirmed By: Robert Ramos
--- NOTE | 2024-03-28 17:03 | Nephrology Progress Note ---
Date of Service March 28, 2024 Assessment & Plan (1) Hyperkalemia: Plan: pseudohyperkalemia which corrected after modifying how K is checked using steps below. w/ WBC count >200K, some degree of pseudohyperkalemia may occur d/t lysis of fragile leukemic cells. No anion gap; no e/o acidosis. RECOMMEND ONCE DAILY K check as below >> will take special arrangements w/ lab EVEN IF k IS NORMAL > recommend checking K as below DAILY while WBC >180K OR can stop daily check if K matches routine check daily x 2 more days (nearly matched today) -do NOT send specimens through tube system but hand deliver to lab if not already doing so -allow fibrin-rich clotting to separate the serum from the cells before centrifuging >> this will lessen cell lysis by stabilizing fragile cells continue prednisone, lasix current doses >>monitor for potential need to intensify lasix dose even temporarily given ongoing edema Will sign off; no nephrology f/u needed; no specific d/c recs (2) Chronic lymphocytic leukemia: Plan: as per hematology (3) Anemia: Plan: as per hematology and primary service; transfuse prn > s/p 4 units 48 hrs; hgb as above Admission and Anticipated Discharge Date Admission Date: March 26, 2024 Subjective no e/o a fib so far; cardiology cont to observe/ has OP f/u recs. seen on evening rounds; no sob (on 02nc); feels LE edema improved. no pain; still some weakness but overall feels much improved Review of Systems 2 Review of Systems: All systems reviewed & are unremarkable except as noted in Subjective Physical Exam 2 Constitutional: well developed (sitting on side of bed on 02NC) and well nourished; no acute distress Eyes: EOM intact bilaterally Neck: no nuchal rigidity Respiratory: normal respiratory effort; no cough Auscultation: + diminished lung sounds (BL bases); no crackles Cardiovascular: Heart Sounds: normal S1, normal S2 and + murmur E xtremities: + edema (2+ BL ankles/pedal and prox legs) Gastrointestinal (Abdomen): Inspection/Auscultation: no abdominal edema P ercussion/Palpation: abdomen soft; abdomen nontender and no ascites Musculoskeletal: Extremities: strength 5/5 throughout Skin: no rashes, warm and dry Results & Data Vital Signs (Past 12 Hours) Vital Signs Temp Pulse Pulse Resp BP BP Pulse Ox 03/28/24 13:47 81 03/28/24 13:33 36.9 C 73 18 116/62 95 03/28/24 13:32 36.8 C 81 20 115/61 92 03/28/24 13:03 37.0 C 81 18 122/67 94 03/28/24 12:48 37.0 C 77 16 111/61 95 03/28/24 12:31 36.5 C 70 20 121/69 94 03/28/24 10:55 36.5 C 84 20 118/58 L 94 03/28/24 08:28 03/28/24 08:02 36.6 C 85 17 106/58 L 95 O2 Del Method O2 Flow Rate 03/28/24 13:47 03/28/24 13:33 1 03/28/24 13:32 03/28/24 13:03 1 03/28/24 12:48 1 03/28/24 12:31 1 03/28/24 10:55 Nasal Cannula 1 03/28/24 08:28 Nasal Cannula 1 03/28/24 08:02 Nasal Cannula 2 Laboratory Results 03/28/24 06:20 03/28/24 13:03
[2024-03-29 07:29] LABS: Hematocrit (blood only) 25.9 % (42.0-52.0); Hemoglobin 7.3 g/dl (14.0-18.0); Mean Corpuscular Hemoglobin 29.8 pg (25.0-34.0); Mean Corpuscular Hgb Conc 28.2 g/dL (32.0-36.0); Mean Corpuscular Volume 105.7 fL (80.0-100.0); Mean Platelet Volume 10.6 fL (9.4-12.4); Nucleated RBC # (auto) 0.08 K/uL (0.00-0.12); Platelet Count 123 K/uL (130-400); RDW Coefficient of Variation 25.8 % (11.5-14.5); RDW Standard Deviation 67.3 fL (36.4-46.3); Red Blood Count 2.45 M/uL (4.70-6.10); White Blood Count 226.27 K/ul (4.8-10.8)
[2024-03-29 07:47] LABS: BUN Creatinine Ratio 41.8 (10-20); Calcium 8.9 mg/dl (8.6-10.3); Creatinine Clr Calc Pharmacy 71.2 ml/min; Potassium 4.9 mmol/L (3.5-5.1)
[2024-03-29] MEDS: FUROSEMIDE 40 MG TAB PO SCH (08:01)
[2024-03-29] MEDS: predniSONE 50 MG TAB PO SCH (08:01)
[2024-03-29] MEDS: FUROSEMIDE 40 MG/4 ML VIAL IV ONE (09:12)
[2024-03-29] MEDS: INFLUENZA VACC TS2024-25(65y+)/PF (IIV3) 0.5mL Syr IM ONE (09:35)
--- NOTE | 2024-03-29 12:45 | Hospitalist Progress Note ---
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 Continue oral prednisone Recheck hemoglobin this afternoon. Additional PRBCs if hemoglobin less than 7 Start long-acting insulin for better glucose control, glucose is uncontrolled due to steroid use Encourage activity Give additional IV Lasix today, some edema in the lower extremities, Communication with cardiology team, agrees with ongoing/additional diuretics, continue other cardiac meds Monitor intake and output and daily weight Admission and Anticipated Discharge Date Admission Date: March 26, 2024 Subjective Patient reports feeling better after transfusion, feels as though his strength is returning somewhat Physical Exam Physical Exam: Constitutional: Alert HEENT: Mucous membranes moist. Lungs: Clear to auscultation, decreased, no wheezes rales or rhonchi CV: S1-S2, regular Abdomen: Soft, nontender, nondistended Extremities: 2+ pretibial edema Neuro: No focal deficits Psych: Cooperative, normal mood Results & Data Results & Data Vital Signs (Past 12 Hours) Vital Signs Temp Pulse Pulse Resp BP Pulse Ox O2 Del Method 03/29/24 08:22 36.4 C L 74 17 118/76 96 Nasal Cannula 03/29/24 07:15 Nasal Cannula 03/29/24 07:04 36.3 C L 73 18 120/66 96 Nasal Cannula O2 Flow Rate 03/29/24 08:22 1 03/29/24 07:15 1 03/29/24 07:04 1 Diagnostic Findings Reviewed imaging, laboratory and diagnostic studies. Pertinent findings as below. Hemoglobin 7.3 WBCs 226.2, baseline Creatinine 0.98 Glucose was reviewed
[2024-03-29 13:05] LABS: Hematocrit (blood only) 27.9 % (42.0-52.0); Hemoglobin 8.1 g/dl (14.0-18.0)
[2024-03-29] MEDS: LANTUS PER UNIT CHARGE SQ SCH (20:47)
[2024-03-29 21:19] VITALS: RESP 18
[2024-03-30] MEDS: LEVOTHYROXINE SODIUM 100 MCG TABLET PO SCH (05:44)
[2024-03-30 07:20] LABS: Hematocrit (blood only) 26.7 % (42.0-52.0); Hemoglobin 7.7 g/dl (14.0-18.0); Mean Corpuscular Hemoglobin 30.2 pg (25.0-34.0); Mean Corpuscular Hgb Conc 28.8 g/dL (32.0-36.0); Mean Corpuscular Volume 104.7 fL (80.0-100.0); Mean Platelet Volume 10.6 fL (9.4-12.4); Nucleated RBC # (auto) 0.08 K/uL (0.00-0.12); Platelet Count 134 K/uL (130-400); RDW Coefficient of Variation 25.4 % (11.5-14.5); Red Blood Count 2.55 M/uL (4.70-6.10); White Blood Count 258.12 K/ul (4.8-10.8)
[2024-03-30 07:43] LABS: Calcium 9.4 mg/dl (8.6-10.3); Creatinine Clr Calc Pharmacy 76.3 ml/min; Potassium 5.5 mmol/L (3.5-5.1)
[2024-03-30 08:16] VITALS: BP 128/64; PULSE 72; TEMP 97.7; O2SAT 95
[2024-03-30] MEDS: FUROSEMIDE 80 MG TAB PO ONE (10:23)
[2024-03-30 13:44] LABS: Hematocrit (blood only) 29.9 % (42.0-52.0); Hemoglobin 8.6 g/dl (14.0-18.0)
--- NOTE | 2024-03-30 14:12 | Discharge Summary ---
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 Outpatient laboratory studies which revealed severe anemia. In the emergency room anemia was confirmed. Patient was admitted to the hospital. Patient was immediately transfused 2 units of packed red blood cells. Patient has known CLL. Hematology oncology consultation was obtained as addition to cardiology for evidence of heart failure and nephrology for his acute kidney injury. Patient had additional laboratory studies performed. 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 He was started on a high dose of IV steroids. He was given IV diuretics for his volume overload and the volume he was receiving with the blood transfusions. Patient was followed by nephrology because he had some hyperkalemia. Since this is a pseudo hyperkalemia due to his CLL impacting laboratory readings. His kidney function remained stable throughout his hospitalization. Patient had required additional transfusion of packed red blood cells x 2 through his hospitalization. His hemoglobin then stabilized with the Solu-Medrol treatment. He was transition to oral steroids. His activity was increased. During his hospitalization his glucose was closely monitored. He did have hyperglycemia induced by the steroids. This was managed with insulin. Patient had echocardiogram performed during his hospitalization which showed normal ejection fraction. And he responded well to diuresis. His edema significantly improved and his weight improved from 100.7 kg to 95.3 kg. On the afternoon of discharge his hemoglobin had continued to improve. He was up and ambulatory without any shortness of breath, lightheadedness, chest pain or dizziness. He appears as though his hemoglobin has stabilized. He has a follow-up with his oncologist on April 07, 2024 to discuss starting treatments for his CLL. Also discussed ongoing steroid treatment at that time. We discussed treating his glucose in the setting of the steroids. His daughter is familiar with insulin. He will resume his oral medications and given instructions to start Lantus should his sugars continue to remain high despite his oral medications. Additional adjustments of his diabetes medications may need to be performed through his PCP. Given instructions to follow diabetic diet as well as fluid restriction. Will continue his outpatient diuretics. During his hospitalization his TSH was checked and was significantly elevated. His Synthroid dose was increased. He will need follow-up TSH in approximately 4 to 6 weeks. And follow-up with his outpatient providers. and daughter at the bedside at time of discharge and agreeable to the plan of care Notes For Next Care Provider Patient may need additional adjustments in his diabetes management depending on how long he is on the steroids Patient should follow-up with his oncologist as scheduled on April 07, 2024 Consider rechecking TSH in 4 to 6 weeks and adjusting Synthroid dose if needed Monitor hemoglobin every 7 to 10 days or as directed by oncology, patient may need to coordinate outpatient transfusions if continues with significant anemia Medication Changes From Visit Synthroid increased to 100 mcg daily Prednisone 80 mg daily for hemolytic anemia Lantus 8 units or as directed while on steroids Admission HPI Per Admitting Provider 83-year-old male with past medical significant for CLL, gout, hypertension, hypothyroidism, diabetes, hyperlipidemia presents with shortness of breath and worsening lower extremity edema and outpatient labs showed increasing WBC and anemia. Patient states he was diagnosed with CLL 2 years ago and is following with hematology/oncology and recently it was decided to start on chemo for which he has appointment with heme-onc at end of this month. Last couple weeks he is having lower extremity edema which is progressively getting worse and and also having shortness of breath which prompted him to go to the PCP. PCP thought there could be some A-fib and advised to go to [facility] for labs. After labs because of the doubling up of the WBC and anemia he was sent here for admission. Patient is currently resting comfortably and answering questions appropriately and speaking in full sentences. Family is in the room. Denies any headache. Vision is okay. No runny nose or sore throat. No cough. Appetite is okay. No difficulty swallowing. Denies any chest pain. No nausea. No abdominal pain. Normal bowel and bladder movements. Denies any blood in the stools. No hematuria. Hemodynamics are okay. Past medical history. As mentioned above Past surgical history. Tonsillectomy Social history. No smoking. Has some passive smoking. No alcohol. Family history. Father had heart disease. Mother had colon cancer. Admission Exam Per Admitting Provider See H&P Discharge Exam Constitutional: Alert HEENT: Mucous membranes moist. Lungs: Clear to auscultation, decreased, no wheezes rales or rhonchi CV: S1-S2, regular Abdomen: Soft, nontender, nondistended Extremities: Trace ankle edema, significantly improved Neuro: No focal deficits Psych: Cooperative, normal mood Updated Medication List Medication Instructions Recorded Confirmed Type albuterol sulfate 90 mcg/actuation 2 puff inhalation Q4 PRN WHEEZING 03/26/24 03/26/24 History aerosol inhaler OR COUGH allopurinol 100 mg tablet 100 mg PO QPM 03/26/24 03/26/24 History aspirin 81 mg tablet,delayed 81 mg PO DAILY 03/26/24 03/26/24 History release doxazosin 2 mg tablet 2 mg PO QPM 03/26/24 03/26/24 History empagliflozin 25 mg tablet 25 mg PO QAM 03/26/24 03/26/24 History (Jardiance) furosemide 40 mg tablet 40 mg PO DAILY 03/26/24 03/26/24 History metoprolol succinate 50 mg 50 mg PO HS 03/26/24 03/26/24 History tablet,extended release 24 hr rosuvastatin 10 mg tablet 10 mg PO QPM 03/26/24 03/26/24 History sitagliptin phosphate 50 1 tab PO BID 03/26/24 03/26/24 History mg-metformin 1,000 mg tablet (Janumet) insulin glargine 100 unit/mL (3 8 unit (0.08 mL) subcut DAILY #15 03/30/24 Rx mL) subcutaneous pen (Lantus mL Solostar U-100 Insulin) levothyroxine 50 mcg tablet 100 mcg (2 x 50 mcg) PO DAILYBB 03/30/24 Rx #60 tabs pen needle, diabetic 33 gauge x #100 ea 03/30/24 Rx 5/32" prednisone 20 mg tablet 80 mg (4 x 20 mg) PO DAILY #120 03/30/24 Rx tabs Hospital Stay Data Consultations 03/26/24 22:21 ED Decision to Admit Stat 03/27/24 05:00 Consult Cardiology Routine 03/27/24 08:00 Consult Hematology Routine Consult Nephrology Routine Diagnostic Imagining Performed 03/27/24 00:25 US venous doppler LE BI Routine Reviewed imaging, laboratory and diagnostic studies. Pertinent findings as below. WBCs 258.1 Hemoglobin 8.6, improved and stabilized Platelets 134 Base metabolic profile stable Creatinine 0.91 Glucose 215 Ultrasound lower extremity negative for DVT Echo shows ejection fraction of 55 to 60%, no wall motion abnormalities, grade 1 diastolic dysfunction, mild pulmonary hypertension. I refer you to the full report for details Hemoglobin A1c 7.6% TSH 11.66 Pending Results Patient Have Any Pending Studies at Discharge: No Discharge Instructions Given to Patient (Per Discharging Provider) Discuss with your oncologist tapering of the steroids and starting treatment for your CLL. Keep your appointment scheduled on April 07, 2024 Your glucoses will be higher due to the fact that you are on the prednisone. May need additional adjustments in your medications for diabetes. Discussed with your PCP Your TSH was elevated, this indicates you need to be on more thyroid medicine. Your dose was increased. Have your PCP check your TSH in 4 to 6 weeks. Total Time Total Time Spent Total Time Spent (In Minutes): 48
== END 2024-03-30 15:30 | disposition home or self-care (01) | DRG 808 ==
LOC: ED 19:54 → 2S 23:09 → SUATTDRO 23:09 → 2S 23:49 → 3W 03-28 14:47